=== PATIENT | female | born 1940 | race Caucasian/White ===

== ENCOUNTER 2016-11-19 10:57 | Inpatient (IN) ==
[2016-11-19] MEDS ORDERED: Naloxone 0.4 MG/ML INJ IVP PRN (13:51)
[2016-11-19] MEDS ORDERED: Ondansetron 4 MG/2 ML VIAL IVP PRN (13:52)
[2016-11-19] MEDS ORDERED: *HR* Dextrose 50 % in Water (Syg) 50 ML SYRINGE IVP PRN (13:57)
[2016-11-19] MEDS ORDERED: D5% in Water 1,000 ML IVC PRN (13:57)
[2016-11-19] MEDS ORDERED: Dextrose Gel 15 GM PO PRN ×2 (13:57)
[2016-11-19] MEDS ORDERED: Albuterol 2.5 MG/3 ML NEBULIZER IH PRN (13:58)
[2016-11-19] MEDS ORDERED: 0.9 % Sodium Chloride 1,000 ML IVC SCH ×2 (14:00→14:56)
--- NOTE | 2016-11-19 14:38 | Internal Med History&Physical ---
<Clari Dotson - Last Filed: 11/19/16 17:39> Date of Encounter: 11/19/16 Time of Encounter: 14:27 Assessment and Plan (1) CVA (cerebral vascular accident) Current visit: Yes Status: Acute Patient has been experiencing difficulty ambulating and eating and change in behavior over the past 2 days. Last known well was on either Tuesday or Tuesday. CT of head did reveal acute subacute left occipital infarct. We will obtain stat MRI of head 2 I did give aspirin rectally 3 we will check lipid profile continue with statin 4 consulted neurology did speak to Dr. Hitchcock will see patient 5 neuro checks 6 aspiration precaution 7 bedside nursing dysphagia evaluation 8 continuous cardiac monitoring Qualifiers: CVA mechanism: unspecified Qualified Code(s): I63.9 - Cerebral infarction, unspecified (2) UTI (urinary tract infection) Current visit: No Status: Acute 1 patient was treated with Bactrim at long-term for UTI sensitivity did reveal Proteus is sensitive for Rocephin which we will continue 2 we will give IV fluids Qualifiers: Urinary tract infection type: site unspecified Hematuria presence: with hematuria Qualified Code(s): N39.0 - Urinary tract infection, site not specified; R31.9 - Hematuria, unspecified; R31.9 - Hematuria, unspecified (3) Sepsis Current visit: Yes Status: Acute Patient presented with altered mental state. Had been treated for UTI as outpatient. She was tachycardic with elevated white count 19.9 temperature was 100.9 sources urine. Blood cultures have been obtained patient has given 2 L of fluid per ER. Culture did grow Proteus-which is sensitive to Rocephin we will continue with Rocephin and blood cultures have been obtained and sent 2 we will give gentle hydration overnight 3 monitor intake and output and daily weights 4 maintain MAP >60 5 continuous cardiac monitoring Qualifiers: Sepsis type: Escherichia coli Qualified Code(s): A41.51 - Sepsis due to Escherichia coli [E. coli] (4) Diabetes Current visit: No Status: Chronic Accu-Cheks to 6 hours nothing by mouth with sliding scale insulin Qualifiers: Diabetes mellitus type: type 2 Diabetes mellitus complication status: without complication Diabetes mellitus mcc insulin use: with intermediate card tender use Qualified Code(s): E11.9 - Type 2 diabetes mellitus without complications ; Z79.4 - USP (current) use of insulin; Z79.4 - ad terminal makeup operator (current) use of insulin; Z79.4 - USP (current) use of insulin; Z79.4 - USP ( current) use of insulin (5) Hypertension Current visit: No Status: Chronic Presently stable-systolic 150s- we allow permissive hypertension due to CVA- continue with home medications Qualifiers: Hypertension type: essential hypertension Qualified Code(s): I10 - Essential (primary) hypertension (6) COPD (chronic obstructive pulmonary disease) Current visit: No Status: Chronic Continue with oxygen and bronchodilators Qualifiers: COPD type: unspecified COPD Qualified Code(s): J44.9 - Chronic obstructive pulmonary disease, unspecified (7) CHF (congestive heart failure) Current visit: No Status: Chronic Qualifiers: Congestive heart failure type: unspecified congestive heart failure type Congestive heart failure chronicity: chronic Qualified Code(s): I50.9 - Heart failure, unspecified (8) Dementia Current visit: Yes Status: Acute Qualifiers: Dementia type: unspecified type Dementia behavioral disturbance: without behavioral disturbance Qualified Code(s): F03.90 - Unspecified dementia without behavioral disturbance (9) Altered mental status Current visit: No Status: Acute 1 patient has had a change in behavior over the past 2 days her difficulty with walking feeding herself and carry conversation. Patient does have a baseline history of dementia, her family feels she has worsened. Her last known well was either Tuesday This could be multifactorial since patient does have a urinary tract infection as well as appears a acute to subacute left occipital infarct. We have followed sepsis protocol given IV fluids and blood cultures and treated with antibiotics 2 MRI has been obtained consult neurology spoke with Dr. Hitchcock 3 continue with an OKIS assessment 4 avoid sedating medications 5 monitor electrolytes Qualifiers: Altered mental status type: unspecified Qualified Code(s): R41.82 - Altered mental status, unspecified (10) DVT prophylaxis Current visit: Yes Status: Acute 1 Lovenox subcutaneous Internal Medicine - H&P: HPI Chief complaint: AMS Admitted From: Hospital to Hospital Transfer Plans for Post Hospital Care: Transfer Longterm Facility History of present illness: Ms. Dejesus is a 76 year old female past medical history of atrial fibrillation asthma CHF cardiomyopathy COPD dementia diabetes GERD hyperlipidemia hypertension liver disease. Information has been obtained from medical records as well as nursing staff due to patient's altered mental state . According to the ER records the patient was recently diagnosed for urinary tract infection and had been receiving Bactrim. Over the past 24 hours she has been displaying worsening mental state, he has not been able to ambulate or feed herself. She does have a history of dementia however family reported that she was unable to carry a conversation which was concerning to them her last known well was on Tuesday or Tuesday. She did present to the [facility] for evaluation. According to ER records upon presentation it appears she was septic with tachycardia and temperature of 100.9 her white count 19. Urine was indicative of UTI. CT of head was obtained which was concerning for acute to subacute left occipital infarct. Sepsis protocol was followed patient was transferred to this facility for further workup and evaluation. Upon arrival stat MRI of head was ordered, it was no family at the bedside according to [facility] records patient is a full code. Patient does appear to be hemodynamic stable at this time. She is alert and does not follow commands well and basically repeats words over and over again. Past Med Surg Social Fam HX - Past Medical History Medical history: arthritis, asthma, atrial fibrillation, cardiomyopathy, CHF, COPD, dementia, diabetes, GERD, hyperlipidemia, hypertension, liver disease, osteoporosis Psychiatric history: anxiety - Social History Smoking Status: Former smoker Smokeless Tobacco Status: No Alcohol use: none Drug use: none - Additional Family History Additional family history: Unable to review due to patient's mental state Internal Medicine - H&P: Meds Acetaminophen [Tylenol] 650 mg PO Q6HR PRN 11/19/16 [History] Albuterol Sulfate [Albuterol Inhaler] 1 puff IH Q4HR PRN 11/19/16 [History] Ascorbate Calcium [Vitamin C] 500 mg PO DAILY 11/19/16 [History] Citalopram [CeleXA] 10 mg PO DAILY 11/19/16 [History] Divalproex (12 HR) [Depakote (12 HR)] 1,000 mg PO DAILY 11/19/16 [History] Docusate [Colace] 100 mg PO BID 11/19/16 [History] Gabapentin [Neurontin] 300 mg PO BID 11/19/16 [History] Glimepiride [Amaryl] 2 mg PO 0800 11/19/16 [History] Haloperidol [Haldol] 5 mg PO TID 11/19/16 [History] Insulin ASPART [NovoLOG] 0 - 12 unit SQ TID PRN 11/19/16 [History] Insulin Glargine [Lantus] 30 unit SQ HS 11/19/16 [History] Iron,Carbonyl [Feosol] 325 mg PO QAM 11/19/16 [History] Lisinopril [Zestril] 10 mg PO DAILY 11/19/16 [History] [place] Carbonate 300 mg PO DAILY 11/19/16 [History] Metoclopramide [Reglan] 10 mg PO TID 11/19/16 [History] Multivitamin-Min/Iron/FA/Vit K [Multi-Day Plus Minerals Tablet] 1 each PO DAILY 11/19/16 [History] Naproxen [Naprosyn] 500 mg PO Q12H PRN 11/19/16 [History] Nortriptyline [Pamelor] 25 mg PO HS 11/19/16 [History] Omeprazole [PriLOSEC] 20 mg PO DAILY 11/19/16 [History] Ondansetron HCl [Zofran] 4 mg PO Q8H PRN 11/19/16 [History] Polyethylene Glycol [Polyox Wsr-301] 17 gm MC BID 11/19/16 [History] Pravastatin Sodium 10 mg PO DAILY 11/19/16 [History] Sodium Chloride 1,000 mg PO BID 11/19/16 [History] Zolpidem [Ambien] 5 mg PO HS 11/19/16 [History] metFORMIN [Glucophage] 1,000 mg PO BIDWM 11/19/16 [History] traZODone [TraZODone] 100 mg PO HS 11/19/16 [History] 3 Allergy/AdvReac Type Severity Reaction Status Date / Time codeine Allergy Vomiting Verified 12/27/15 10:50 iodine Allergy See Verified 11/19/16 09:05 Comments propoxyphene [From Darvon] Allergy Vomiting Verified 11/19/16 09:05 ROS unobtainable: due to mental status All Systems PM: A 10-system review of systems was performed and is negative for pertinent findings except as documented above in the HPI. - Constitutional Vitals: Temp Pulse Resp BP Pulse Ox 99.6 F 92 18 152/84 98 11/19/16 12:15 11/19/16 12:15 11/19/16 12:15 11/19/16 12:15 11/19/16 12:15 General appearance: Present: A&O X 1 Exam: Does not follow commands well - Head Head exam: Present: atraumatic, normocephalic - Eye Eye exam: Present: EOMI, PERRL, conjuntiva pink, sclera anicteric Pupils: Present: PERRL - Neck Neck exam general surgery: Present: supple, trachea midline. Absent: lymphadenopathy - Respiratory Respiratory exam: Present: CTAB. Absent: accessory muscle use, rales, rhonchi, wheezes - Cardiovascular Cardiovascular exam: Present: RRR, +S1, +S2. Absent: diastolic murmur, gallop, rubs, systolic murmur - GI/Abdominal GI/Abdominal exam: Present: normal bowel sounds, soft, no peritoneal signs. Absent: distended, tenderness - Extremities Exam Extremities exam: Present: warm, radial pulses palpable and symmetrical. Absent : calf tenderness, cyanotic, pedal edema - Neurological Exam Neurological exam: Present: altered. Absent: pronater drift, facial droop, speech deficit - Skin Skin exam: Present: dry, intact Internal Med - H&P Results - Labs Labs: Lab work dated 11/19/2016 CBC day BC 19.9 hemoglobin 13.3 hematocrit 40.4 platelets 277 Chemistry sodium 142 potassium 4.3 chloride 109 bicarbonate 25 BUN 26 creatinine 1.01 glucose 390 Coags PT 11.5 INR 1.1 PTT 24.4 Lactate 1.3 Troponin 0.04 TSH 2.43 Urinalysis positive for blood and positive for nitrate large amount of leuks moderate bacteria - Diagnostic Studies CT scan - head Additional comments: CT scan of head per radiology read subtle hypoattenuation and loss of normal lincoln white junction within the left occipital lobe concerning for an acute/ subacute left occipital infarct <Jaydon Zelaya - Last Filed: 11/19/16 20:47> Date of Encounter: 11/19/16 Internal Medicine - H&P: HPI History of present illness: Ms. Dejesus is a 76 year old female All Systems PM: A 10-system review of systems was performed and is negative for pertinent findings except as documented above in the HPI. - Constitutional Vitals: Temp Pulse Resp BP Pulse Ox 100.8 F H 98 20 137/79 94 11/19/16 18:55 11/19/16 18:55 11/19/16 18:55 11/19/16 18:55 11/19/16 18:55 Internal Med - H&P Results - Labs Labs: Cardiac Enzymes 11/19/16 11/19/16 Range/Units 14:22 19:44 Troponin I 0.02 0.02 (0-0.03) ng/mL - Impressions ITS Impressions Brain MRI 11/19/16 13:37 IMPRESSION: 1. No acute intracranial abnormality. Specifically, no acute infarction. 2. Mild parenchymal volume loss and sequela of mild chronic microvascular ischemic changes. D/ / Ricardo Caballero MD / Ricardo Caballero MD Interpreting Provider: Ricardo Caballero MD - Attending Attestation I independently obtained history and examined this patient and my medical decision-making was reviewed with the nurse practitioner. I agree with the documented findings, disposition and treatment plan as described. My findings are summarized below: Ration is lethargic, in no acute distress, answers simples questions. She is awake alert oriented 0. Plan: We will obtain MRI of the brain. We will treat with IV fluids and IV antibiotics for UTI and metabolic encephalopathy.
--- NOTE | 2016-11-19 16:22 | Neurology - Consult Note ---
Date of Encounter: 11/19/16 Time of Encounter: 16:19 Assessment and Plan (1) Altered mental status Current Visit: No Status: Acute I believe that this patient's altered mental status is more likely due to an underlying infectious process. I would however recommend metabolic workup to reaffirm an infectious process. However there is no evidence of a central nervous system infectious process. She denies headache, there is axial rigidity , however I believe this may be due to a underlying movement disorder perhaps Parkinson's disease. Recommend CBC with differential, metabolic panel. MRI scan of the brain was negative for any evidence of an acute infarct. From a neurologic perspective however it is possible that she may have Parkinson's disease. However this is a diagnosis that is best made in the office setting when the patient is able to walk and move around. However she does have a resting tremor of the left upper extremity and does have masked facies. I would recommend neurologic consultation after she is discharged from the hospital for further assessment of this possibility. In the meantime I will defer management of her acute metabolic derangement and sepsis to your discretion. I will reevaluate her at your request. Qualifiers: Altered mental status type: unspecified Qualified Code(s): R41.82 - Altered mental status, unspecified History of Present Illness HPI: Ms. Dejesus is a 76 year old female who is being seen for neurologic consultation secondary to mental status change. She does have a baseline history of dementia , and the history is being obtained from the medical record and the patient is somewhat confused and no family members are present. Apparently there has been a change from her baseline behavior over the last 2 days. She had a poor appetite and has been less responsive and sleeping more. She was known to have had a urinary tract infection for which she was being treated. She did have a CT scan of the brain which revealed suspicion for an acute infarct, however MRI scan of the brain repeated here since this admission was negative for any evidence of acute infarct. It does reveal some scattered deep white matter hyperintensities as well as cortical atrophy. At the bedside the patient is awake however somewhat confused. I did ask her whether she had a headache on multiple occasions and she said no. She does moan however cannot tell me where she has pain. She was able to follow some commands however not all. She is not able to provide a medical history. Past Med Surg Social Fam HX - Past Medical History Medical history: arthritis, asthma, atrial fibrillation, cardiomyopathy, CHF, COPD, dementia, diabetes, GERD, hyperlipidemia, hypertension, liver disease, osteoporosis Psychiatric history: anxiety - Social History Smoking Status: Former smoker Smokeless Tobacco Status: No Alcohol use: none Drug use: none Medications and Allergies Acetaminophen [Tylenol] 650 mg PO Q6HR PRN 11/19/16 [History] Albuterol Sulfate [Albuterol Inhaler] 1 puff IH Q4HR PRN 11/19/16 [History] Ascorbate Calcium [Vitamin C] 500 mg PO DAILY 11/19/16 [History] Citalopram [CeleXA] 10 mg PO DAILY 11/19/16 [History] Divalproex (12 HR) [Depakote (12 HR)] 1,000 mg PO DAILY 11/19/16 [History] Docusate [Colace] 100 mg PO BID 11/19/16 [History] Gabapentin [Neurontin] 300 mg PO BID 11/19/16 [History] Glimepiride [Amaryl] 2 mg PO 0800 11/19/16 [History] Haloperidol [Haldol] 5 mg PO TID 11/19/16 [History] Insulin ASPART [NovoLOG] 0 - 12 unit SQ TID PRN 11/19/16 [History] Insulin Glargine [Lantus] 30 unit SQ HS 11/19/16 [History] Iron,Carbonyl [Feosol] 325 mg PO QAM 11/19/16 [History] Lisinopril [Zestril] 10 mg PO DAILY 11/19/16 [History] [place] Carbonate 300 mg PO DAILY 11/19/16 [History] Metoclopramide [Reglan] 10 mg PO TID 11/19/16 [History] Multivitamin-Min/Iron/FA/Vit K [Multi-Day Plus Minerals Tablet] 1 each PO DAILY 11/19/16 [History] Naproxen [Naprosyn] 500 mg PO Q12H PRN 11/19/16 [History] Nortriptyline [Pamelor] 25 mg PO HS 11/19/16 [History] Omeprazole [PriLOSEC] 20 mg PO DAILY 11/19/16 [History] Ondansetron HCl [Zofran] 4 mg PO Q8H PRN 11/19/16 [History] Polyethylene Glycol [Polyox Wsr-301] 17 gm MC BID 11/19/16 [History] Pravastatin Sodium 10 mg PO DAILY 11/19/16 [History] Sodium Chloride 1,000 mg PO BID 11/19/16 [History] Zolpidem [Ambien] 5 mg PO HS 11/19/16 [History] metFORMIN [Glucophage] 1,000 mg PO BIDWM 11/19/16 [History] traZODone [TraZODone] 100 mg PO HS 11/19/16 [History] 3 Allergy/AdvReac Type Severity Reaction Status Date / Time codeine Allergy Vomiting Verified 12/27/15 10:50 iodine Allergy See Verified 11/19/16 09:05 Comments propoxyphene [From Darvon] Allergy Vomiting Verified 11/19/16 09:05 ROS unobtainable: due to mental status All Systems: A 10-system review of systems was performed and is negative for pertinent findings except as documented above in the HPI. Physical Examination - Vital Signs Vital Signs: Initial Vital Signs Temp Pulse Resp BP Pulse Ox 99.6 F 92 18 152/84 98 11/19/16 12:15 11/19/16 12:15 11/19/16 12:15 11/19/16 12:15 11/19/16 12:15 - Exam Exam: Neurologic examination is performed and finds the following; Cerebral functions-the patient is lethargic, however does make eye contact, she is able to give simple verbal responses to simple 1 word questions. I did ask whether or not she has a headache she replied no one several occasions. I did ask her what her name was and she was able to tell me that her name is Sangita Dejesus, she also knows that she is in [facility]. She follows some commands however not all. She was not able to give a medical history. Cranial nerves-pupils are equal and reactive to light, extraocular motility is intact. Sensory to face is intact. No facial asymmetry is identified. Tongue protrudes midline. Motor exam-I find no focal or lateralized deficits. However she does appear to be parkinsonian. She does appear to have masked facies as well as a resting tremor of the left upper extremity. She also has cogwheeling of the left upper extremity. She has rigidity of both lower extremities. No atrophy is identified. No focal or lateralized deficits are present. She has good strength bilaterally she is able to wiggle the toes bilaterally upon command. Sensory exam-light touch is generally intact bilaterally. Deep tendon reflexes are 1 symmetrically in the biceps triceps brachioradialis absent at the patella and Achilles. No Babinski or clonus are present. Consult Discharge Plan - Plan Referrals: Ludwin Mcdonnell MD [Primary Care Provider] -
[2016-11-19] MEDS ORDERED: Acetaminophen 325 MG TABLET PO PRN (17:48)
[2016-11-19] MEDS: Insulin LISPRO 300 UNITS/3 ML VIAL SQ SCH ×2 (18:25→23:31)
[2016-11-19] MEDS: Acetaminophen 650 MG RECTAL SUPP RC PRN (21:15)
[2016-11-19] MEDS: Gabapentin 100 MG CAPSULE PO SCH (21:18)
[2016-11-19] MEDS: *HR* Morphine 2 MG/ML SYRINGE IVP PRN (23:28)
[2016-11-20 02:53] LABS: Basophils # 0.1 K/mcL (0.0-0.2); Basophils % 0.4 %; Eosinophils % 0.2 %; Hematocrit 37.7 % (35.3-44.9); Hemoglobin 12.3 g/dL (11.5-15.4); Immature Granulocytes % 0.5 % (0-4); Lymphocytes # 3.6 K/mcL (0.6-4.6); Lymphocytes % 20.4 %; Mean Corpuscular HGB Conc 32.6 g/dL (31.6-35.5); Mean Corpuscular Hemoglobin 30.4 pg (28.0-33.3); Mean Corpuscular Volume 93.1 fL (83.0-100.0); Monocytes # 1.5 K/mcL (0.0-1.3); Monocytes % 8.7 %; Neutrophils # 12.4 K/mcL (1.6-8.9); Platelet Count 253 K/mcL (140-400); Red Blood Count 4.05 M/mcL (3.82-4.97); Red Cell Distribution Width 13.1 % (11.5-14.5); Segmented Neutrophils % 69.8 %
[2016-11-20 03:08] LABS: BUN/Creatinine Ratio 30 (6-26); Blood Urea Nitrogen 23 mg/dL (7-20); Calcium 8.8 mg/dL (8.6-10.8); Carbon Dioxide 26 mEq/L (19-29); Chloride 114 mEq/L (98-109); Glucose 191 mg/dL (70-99); Magnesium 1.9 mg/dL (1.6-2.6); Osmolality,Calculated 309 (280-300); Potassium 3.7 mEq/L (3.5-4.5); Sodium 145 mEq/L (136-145); eGFR For African Americans > 60 (> 60); eGFR For Non-African Americans > 60 (> 60)
[2016-11-20] MEDS: *HR* Morphine 2 MG/ML SYRINGE IVP PRN ×3 (03:30→16:11)
[2016-11-20] MEDS: Insulin LISPRO 300 UNITS/3 ML VIAL SQ SCH ×3 (06:09→18:23)
[2016-11-20] MEDS: Pantoprazole 40 MG VIAL IVP SCH (08:06)
[2016-11-20] MEDS: Acetaminophen 650 MG RECTAL SUPP RC PRN ×3 (09:26→23:42)
[2016-11-20] MEDS: Lithium Carbonate 300 MG CAPSULE PO SCH (10:28)
[2016-11-20] MEDS: Divalproex (12 HR) 500 MG TABLET PO SCH (10:28)
[2016-11-20] MEDS: Gabapentin 100 MG CAPSULE PO SCH ×2 (10:28→19:54)
[2016-11-20] MEDS: Ascorbic Acid 500 MG TABLET PO SCH (10:29)
[2016-11-20] MEDS: Multivit/Ca/Min/Fe/FA 1 TAB TABLET PO SCH (10:29)
--- NOTE | 2016-11-20 12:19 | Neurology Progress Note ---
Date of Encounter: 11/20/16 Time of Encounter: :17 Assessment and Plan (1) Parkinsonism Current Visit: Yes Status: Acute Pt does appear very parkinsonian. She also has an elevated WBC count and is very rigid. Apparently takes haldol as well as reglan. Concern for NMS. will check cpk levels and LFT's. If elevated will anticipate starting dantrolene. If labs are normal will consider LP if not clinically improved tomorrow. Continue ongoing mgmt of UTI. Consider ID eval. Qualifiers: Qualified Code(s): G21.11 - Neuroleptic induced parkinsonism Subjective Interval history: Chart was reviewed, pt was seen and examined. Case discussed with nursing. Pt. is not improved from yesterday. She remains lethargic. WBC's 17.8, BUN elevated. She is able to answer some questions and others not. Neurologically does have masked facies. Cogwheel rigidity of the upper extremities. Also nuchal rigidity and rigidity of the legs. Temp 100.9. Currently on abx tx for UTI. Still denies headache. Objective - Constitutional Vitals: Temp Pulse Resp BP Pulse Ox 100.9 F H 90 22 136/70 97 11/20/16 11:40 11/20/16 11:40 11/20/16 11:40 11/20/16 11:40 11/20/16 11:40 - Neurological Exam Additional comments: Neurologic exam finds; Cerebral functions- Lethargic, arouses to voice, does make eye contact, paucity of speech, however answers some questions appropriately. Recognizes 2 fingers held in front of her. Delerious. CN- MEGGAN,EOMI, no facial asymmetry, voice hypophonic. Motor- no focal or lateralized deficits, pt does have cogwheel rigidity of the upper and lower extremities. Also has axial rigidity. DTR's- diminished throughout. Results - Laboratory Findings CBC and BMP: 11/20/16 02:28 11/20/16 02:28 Abnormal lab findings: Abnormal lab results WBC 17.8 K/mcL (4.3-11.1) H 11/20/16 02:28 Neutrophils # 12.4 K/mcL (1.6-8.9) H 11/20/16 02:28 Monocytes # 1.5 K/mcL (0.0-1.3) H 11/20/16 02:28 Chloride 114 mEq/L (98-109) H 11/20/16 02:28 BUN 23 mg/dL (7-20) H 11/20/16 02:28 BUN/Creatinine Ratio 30 (6-26) H 11/20/16 02:28 Glucose 191 mg/dL (70-99) H 11/20/16 02:28 POC Glucose 210 (58-89) H 11/19/16 23:11 Calculated Osmolality 309 (280-300) H 11/20/16 02:28 Consult Discharge Plan - Plan Referrals: Ludwin Mcdonnell MD [Primary Care Provider] -
[2016-11-20 13:13] LABS: Alanine Aminotransferase 43 Units/L (0-55); Aspartate Amino Transferase 36 Units/L (5-34); Creatine Kinase 388 Units/L (29-168)
--- NOTE | 2016-11-20 18:36 | Internal Med Progress Note ---
Date of Encounter: 11/20/16 Time of Encounter: 11:00 - Assessment and plan (1) Sepsis Current Visit: Yes Status: Acute Assessment and plan: -Secondary to acute cystitis. -Continue IV ceftriaxone -Concerns for nuchal rigidity. -Neurology following with recommendations to rule out NMS and if negative will consider LP if not clinically improved tomorrow. Qualifiers: Sepsis type: sepsis due to unspecified organism Qualified Code(s): A41.9 - Sepsis, unspecified organism (2) Diabetes Current Visit: No Status: Chronic Assessment and plan: -Continue home meds Qualifiers: Diabetes mellitus type: type 2 Diabetes mellitus complication status: without complication Diabetes mellitus half-way insulin use: with half-way use Qualified Code(s): E11.9 - Type 2 diabetes mellitus without complications ; Z79.4 - long term care pharmacist (current) use of insulin; Z79.4 - skilled nursing (current) use of insulin; Z79.4 - long term care pharmacist (current) use of insulin; Z79.4 - long term care pharmacist ( current) use of insulin (3) Hypertension Current Visit: No Status: Chronic Assessment and plan: Continue home meds Qualifiers: Hypertension type: essential hypertension Qualified Code(s): I10 - Essential (primary) hypertension (4) COPD (chronic obstructive pulmonary disease) Current Visit: No Status: Chronic Assessment and plan: Continue home meds Qualifiers: COPD type: unspecified COPD Qualified Code(s): J44.9 - Chronic obstructive pulmonary disease, unspecified (5) CHF (congestive heart failure) Current Visit: No Status: Chronic Assessment and plan: Continue home meds Qualifiers: Congestive heart failure type: unspecified congestive heart failure type Congestive heart failure chronicity: chronic Qualified Code(s): I50.9 - Heart failure, unspecified (6) DVT prophylaxis Current Visit: Yes Status: Acute (7) Parkinsonism Current Visit: Yes Status: Acute Assessment and plan: -Neurology following and appreciate recommendations 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 Absent: diastolic murmur, gallop, rubs, systolic murmur Internal Medicine: Result - Labs CBC & Chem 7: 11/20/16 02:28 11/20/16 02:28 Labs: Short CBC 11/20/16 Range/Units 02:28 WBC 17.8 H (4.3-11.1) K/mcL Hgb 12.3 (11.5-15.4) g/dL Hct 37.7 (35.3-44.9) % Plt Count 253 (140-400) K/mcL Neutrophils # 12.4 H (1.6-8.9) K/mcL BMP 11/20/16 02:28 Sodium 145 Potassium 3.7 Chloride 114 H Carbon Dioxide 26 BUN 23 H Creatinine 0.77 Glucose 191 H Calcium 8.8 Cardiac Enzymes 11/19/16 11/20/16 Range/Units 19:44 02:28 Troponin I 0.02 0.03 (0-0.03) ng/mL Liver Function 11/20/16 Range/Units 12:51 AST 36 H (5-34) Units/L ALT 43 (0-55) Units/L Consult Discharge Plan - Plan Referrals: Ludwin Mcdonnell MD [Primary Care Provider] -
[2016-11-20] MEDS ORDERED: Acetaminophen 650 MG RECTAL SUPP RC ONE (19:59)
[2016-11-21] MEDS ORDERED: WATER FOR INJ IVP ONE (01:49)
[2016-11-21] MEDS ORDERED: DANTROLENE SODIUM IVP ONE (01:49)
[2016-11-21] MEDS: Insulin LISPRO 300 UNITS/3 ML VIAL SQ SCH ×4 (02:23→18:00)
[2016-11-21] MEDS: *HR* Morphine 2 MG/ML SYRINGE IVP PRN ×2 (08:28→14:37)
[2016-11-21] MEDS: Divalproex (12 HR) 500 MG TABLET PO SCH (08:29)
[2016-11-21] MEDS: Pantoprazole 40 MG VIAL IVP SCH (08:31)
[2016-11-21] MEDS: Multivit/Ca/Min/Fe/FA 1 TAB TABLET PO SCH (08:36)
[2016-11-21] MEDS: Ascorbic Acid 500 MG TABLET PO SCH (08:36)
[2016-11-21] MEDS: Lithium Carbonate 300 MG CAPSULE PO SCH (08:36)
[2016-11-21] MEDS: Gabapentin 100 MG CAPSULE PO SCH ×2 (08:36→19:22)
[2016-11-21 10:36] LABS: Basophils # 0.1 K/mcL (0.0-0.2); Basophils % 0.4 %; Eosinophils % 0.1 %; Hemoglobin 12.4 g/dL (11.5-15.4); Immature Granulocytes % 0.4 % (0-4); Lymphocytes # 3.3 K/mcL (0.6-4.6); Lymphocytes % 23.7 %; Mean Corpuscular HGB Conc 32.6 g/dL (31.6-35.5); Mean Corpuscular Hemoglobin 30.3 pg (28.0-33.3); Mean Corpuscular Volume 92.9 fL (83.0-100.0); Mean Platelet Volume 10.5 fL (9.4-12.4); Monocytes # 1.3 K/mcL (0.0-1.3); Monocytes % 9.4 %; Platelet Count 264 K/mcL (140-400); Red Blood Count 4.09 M/mcL (3.82-4.97); Red Cell Distribution Width 13.1 % (11.5-14.5)
[2016-11-21 10:53] LABS: Alanine Aminotransferase 67 Units/L (0-55); Albumin 2.7 g/dL (3.5-5.0); Albumin/Globulin Ratio 0.9 (1.1-2.2); Alkaline Phosphatase 73 Units/L (38-126); Aspartate Amino Transferase 52 Units/L (5-34); BUN/Creatinine Ratio 33 (6-26); Bilirubin,Total 0.4 mg/dL (0.2-1.2); Blood Urea Nitrogen 26 mg/dL (7-20); Calcium 8.8 mg/dL (8.6-10.8); Carbon Dioxide 27 mEq/L (19-29); Chloride 114 mEq/L (98-109); Creatine Kinase 501 Units/L (29-168); Globulin 2.9 g/dL (2.4-3.5); Glucose 189 mg/dL (70-99); Osmolality,Calculated 316 (280-300); Potassium 3.4 mEq/L (3.5-4.5); Sodium 148 mEq/L (136-145); Total Protein 5.6 g/dL (6.0-8.3); eGFR For African Americans > 60 (> 60); eGFR For Non-African Americans > 60 (> 60)
[2016-11-21] MEDS: 0.9 % Sodium Chloride 1,000 ML IVC SCH (11:00)
--- NOTE | 2016-11-21 13:23 | Neurology Progress Note ---
Date of Encounter: 11/21/16 Time of Encounter: 13:18 Assessment and Plan (1) Parkinsonism Current Visit: Yes Status: Acute I am concerned about the possibility of neuroleptic malignant syndrome. She has been on Haldol, and is currently on metoclopramide. Both of which are dopaminergic blockers. I would recommend that we discontinue the metoclopramide , discontinue any other medication that resultant dopaminergic blockade. Also recommend we stop lithium and check a level level. I will start her on dantrolene per protocol. I will also attempt to get a lumbar puncture done through interventional radiology to rule out the possibility of a central nervous system infectious process. Also recommend psychiatric evaluation to rule out the possibility of malignant catatonia. 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, unspecified Subjective Interval history: The patient was seen and examined, chart was reviewed. Case discussed with nursing. Patient is clinically unimproved. She remains awake however is nonverbal, not responsive at all. Not following commands, not attempting to talk. WBCs are slightly decreased today, however LFTs, and CPK are slightly increased. I am concerned about the possibility of an NMS-type syndrome. Patient was given 1 dose of dantrolene last night and apparently responded as her heart rate decreased, and respirations improved. Must also rule out a central nervous system infectious process. Objective - Constitutional Vitals: Temp Pulse Resp BP Pulse Ox 100.2 F H 105 40 166/86 96 11/21/16 11:47 11/21/16 11:47 11/21/16 11:47 11/21/16 11:47 11/21/16 11:47 - Neurological Exam Additional comments: Neurologic examination finds that the patient is awake however she is not alert she does not respond to voice commands she does make eye contact. Does not attempts to talk. She is diaphoretic, respirations are somewhat rapid. Pupils are equal and reactive. No facial asymmetry is present. Motor exam-he was axial rigidity as well as appendicular rigidity. I am increasingly suspicious of a neuroleptic malignant syndrome type process. She has been on haloperidol, as well as metoclopramide. Deep tendon reflexes are 1 symmetrically. No clonus or Babinski are present. Results - Laboratory Findings CBC and BMP: 11/21/16 09:44 11/21/16 09:44 Abnormal lab findings: Abnormal lab results WBC 13.7 K/mcL (4.3-11.1) H 11/21/16 09:44 Neutrophils # 9.0 K/mcL (1.6-8.9) H 11/21/16 09:44 Sodium 148 mEq/L (136-145) H 11/21/16 09:44 Potassium 3.4 mEq/L (3.5-4.5) L 11/21/16 09:44 Chloride 114 mEq/L (98-109) H 11/21/16 09:44 BUN 26 mg/dL (7-20) H 11/21/16 09:44 BUN/Creatinine Ratio 33 (6-26) H 11/21/16 09:44 Glucose 189 mg/dL (70-99) H 11/21/16 09:44 POC Glucose 207 (58-89) H 11/21/16 06:25 Calculated Osmolality 316 (280-300) H 11/21/16 09:44 AST 52 Units/L (5-34) H 11/21/16 09:44 ALT 67 Units/L (0-55) H 11/21/16 09:44 Creatine Kinase 501 Units/L (29-168) H 11/21/16 09:44 Serum Total Protein 5.6 g/dL (6.0-8.3) L 11/21/16 09:44 Albumin 2.7 g/dL (3.5-5.0) L 11/21/16 09:44 Albumin/Globulin Ratio 0.9 (1.1-2.2) L 11/21/16 09:44 Consult Discharge Plan - Plan Referrals: Ludwin Mcdonnell MD [Primary Care Provider] -
--- NOTE | 2016-11-21 17:25 | Internal Med Progress Note ---
Date of Encounter: 11/21/16 Time of Encounter: 11:00 - Assessment and plan (1) Sepsis Current Visit: Yes Status: Acute Assessment and plan: -Secondary to acute cystitis. -Continue IV ceftriaxone -Concerns for nuchal rigidity. -Neurology following with recommendations to rule out NMS and for LP to rule out infectious source. Qualifiers: Sepsis type: sepsis due to unspecified organism Qualified Code(s): A41.9 - Sepsis, unspecified organism (2) Parkinsonism Current Visit: Yes Status: Acute Assessment and plan: -Neurology consulted with recommendations for treating suspected NMS with Dantrolene. -Recommendations to discontinue Haldol and metoclopramide in addition to psychiatry consult to rule out malignant catatonia. -Recommendations also for CT of brain and lumbar puncture to exclude structural brain disease and infection; interventional radiology to be consult for LP. 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, unspecified (3) Diabetes Current Visit: No Status: Chronic Assessment and plan: -Controlled;continue home meds Qualifiers: Diabetes mellitus type: type 2 Diabetes mellitus complication status: without complication Diabetes mellitus roasterman insulin use: with roasterman use Qualified Code(s): E11.9 - Type 2 diabetes mellitus without complications ; Z79.4 - exterminator helper termite (current) use of insulin; Z79.4 - half-way (current) use of insulin; Z79.4 - exterminator helper termite (current) use of insulin; Z79.4 - half-way ( current) use of insulin (4) Hypertension Current Visit: No Status: Chronic Assessment and plan: Continue home meds Qualifiers: Hypertension type: essential hypertension Qualified Code(s): I10 - Essential (primary) hypertension (5) COPD (chronic obstructive pulmonary disease) Current Visit: No Status: Chronic Assessment and plan: Continue home meds Qualifiers: COPD type: unspecified COPD Qualified Code(s): J44.9 - Chronic obstructive pulmonary disease, unspecified (6) CHF (congestive heart failure) Current Visit: No Status: Chronic Assessment and plan: Continue home meds Qualifiers: Congestive heart failure type: unspecified congestive heart failure type Congestive heart failure chronicity: chronic Qualified Code(s): I50.9 - Heart failure, unspecified (7) DVT prophylaxis Current Visit: Yes Status: Acute Assessment and plan: Heparin subcutaneous - Subjective Interval history: Patient with generalized rigidity and with hyperthermia overnight. She continues to have altered mental status. Family who is present at bedside reports the symptoms have been present for several weeks and she has progressively gotten worse. - Constitutional Vitals: Temp Pulse Resp BP Pulse Ox 99.9 F H 101 28 106/67 96 11/21/16 15:45 11/21/16 15:45 11/21/16 15:45 11/21/16 15:45 11/21/16 15:45 General appearance: Present: A&O X 1 - Cardiovascular Cardiovascular exam: Present: RRR, +S1, +S2. Absent: diastolic murmur, gallop, rubs, systolic murmur - Neurological Exam Additional comments: Patient with generalized rigidity Internal Medicine: Result - Labs CBC & Chem 7: 11/21/16 09:44 11/21/16 09:44 Labs: Short CBC 11/21/16 Range/Units 09:44 WBC 13.7 H (4.3-11.1) K/mcL Hgb 12.4 (11.5-15.4) g/dL Hct 38.0 (35.3-44.9) % Plt Count 264 (140-400) K/mcL Neutrophils # 9.0 H (1.6-8.9) K/mcL BMP 11/21/16 09:44 Sodium 148 H Potassium 3.4 L Chloride 114 H Carbon Dioxide 27 BUN 26 H Creatinine 0.78 Glucose 189 H Calcium 8.8 Liver Function 11/21/16 Range/Units 09:44 Total Bilirubin 0.4 (0.2-1.2) mg/dL AST 52 H (5-34) Units/L ALT 67 H (0-55) Units/L Alkaline Phosphatase 73 (38-126) Units/L Albumin 2.7 L (3.5-5.0) g/dL Consult Discharge Plan - Plan Referrals: Ludwin Mcdonnell MD [Primary Care Provider] -
[2016-11-21] MEDS: DANTROLENE SODIUM IVPB SCH (18:03)
[2016-11-21] MEDS: WATER FOR INJ IVPB SCH (18:03)
[2016-11-21] MEDS: *HR* Heparin 5,000 UNIT/ML VIAL SQ SCH (18:15)
[2016-11-21] MEDS: Acetaminophen 650 MG RECTAL SUPP RC PRN (20:17)
[2016-11-22] MEDS: WATER FOR INJ IVPB SCH ×5 (00:53→23:58)
[2016-11-22] MEDS: DANTROLENE SODIUM IVPB SCH ×5 (00:53→23:58)
[2016-11-22] MEDS: Insulin LISPRO 300 UNITS/3 ML VIAL SQ SCH ×5 (00:54→23:09)
[2016-11-22 04:09] LABS: Basophils # 0.1 K/mcL (0.0-0.2); Basophils % 0.3 %; Eosinophils % 0.1 %; Hematocrit 40.9 % (35.3-44.9); Hemoglobin 13.3 g/dL (11.5-15.4); Immature Granulocytes % 0.5 % (0-4); Lymphocytes # 4.2 K/mcL (0.6-4.6); Lymphocytes % 26.9 %; Mean Corpuscular HGB Conc 32.5 g/dL (31.6-35.5); Mean Corpuscular Hemoglobin 30.2 pg (28.0-33.3); Mean Platelet Volume 10.4 fL (9.4-12.4); Monocytes # 1.2 K/mcL (0.0-1.3); Monocytes % 7.5 %; Platelet Count 266 K/mcL (140-400); Segmented Neutrophils % 64.7 %
[2016-11-22] MEDS: Acetaminophen 650 MG RECTAL SUPP RC PRN (04:23)
[2016-11-22 04:24] LABS: Alanine Aminotransferase 66 Units/L (0-55); Aspartate Amino Transferase 43 Units/L (5-34); Creatine Kinase 525 Units/L (29-168)
[2016-11-22] MEDS: *HR* Heparin 5,000 UNIT/ML VIAL SQ SCH ×3 (06:45→20:41)
[2016-11-22] MEDS: 0.9 % Sodium Chloride 1,000 ML IVC SCH ×2 (06:46→18:42)
--- NOTE | 2016-11-22 07:28 | Neurology Progress Note ---
Date of Encounter: 11/22/16 Time of Encounter: 07:26 Assessment and Plan (1) Parkinsonism Current Visit: Yes Status: Acute Suspect NMS. R/O JACK PRIZER infection. LP pending. Continue dantrolene. Rec psychiatry eval. Recommenc ID eval. Will check lactate. 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, unspecified Subjective Interval history: Chart reviewed, pt. was seen and examined. Case discussed with nursing. Pt. remains lethargic. She does make eye contact. She was able to correctly identify 2 fingers held in front of her. She is less rigid today. Still febrile. CPK slightly increased, WBC's slightly decreased. LFT's essentially unchanged. [place] level absent in serum. LP pending. Objective - Constitutional Vitals: Temp Pulse Resp BP Pulse Ox 99.6 F 86 36 157/90 97 11/22/16 06:33 11/22/16 06:33 11/22/16 06:33 11/22/16 06:33 11/22/16 06:33 - Neurological Exam Additional comments: See subjective. Results - Laboratory Findings CBC and BMP: 11/22/16 03:53 11/21/16 09:44 Abnormal lab findings: Abnormal lab results WBC 15.5 K/mcL (4.3-11.1) H 11/22/16 03:53 Neutrophils # 10.0 K/mcL (1.6-8.9) H 11/22/16 03:53 Sodium 148 mEq/L (136-145) H 11/21/16 09:44 Potassium 3.4 mEq/L (3.5-4.5) L 11/21/16 09:44 Chloride 114 mEq/L (98-109) H 11/21/16 09:44 BUN 26 mg/dL (7-20) H 11/21/16 09:44 BUN/Creatinine Ratio 33 (6-26) H 11/21/16 09:44 Glucose 189 mg/dL (70-99) H 11/21/16 09:44 POC Glucose 194 (58-89) H 11/22/16 00:09 Calculated Osmolality 316 (280-300) H 11/21/16 09:44 AST 43 Units/L (5-34) H 11/22/16 03:53 ALT 66 Units/L (0-55) H 11/22/16 03:53 Creatine Kinase 525 Units/L (29-168) H 11/22/16 03:53 Serum Total Protein 5.6 g/dL (6.0-8.3) L 11/21/16 09:44 Albumin 2.7 g/dL (3.5-5.0) L 11/21/16 09:44 Albumin/Globulin Ratio 0.9 (1.1-2.2) L 11/21/16 09:44 [place] < 0.1 mEq/L (0.6-1.2) L 11/21/16 14:22 Consult Discharge Plan - Plan Referrals: Ludwin Mcdonnell MD [Primary Care Provider] -
[2016-11-22] MEDS ORDERED: *HR* Midazolam HCl 2 MG/2 ML VIAL IV ONE (07:34)
[2016-11-22 07:56] LABS: INR 1.2; Prothrombin Time 13.4 Seconds (9.4-12.1)
[2016-11-22] MEDS: Gabapentin 100 MG CAPSULE PO SCH (08:59)
[2016-11-22] MEDS: Divalproex (12 HR) 500 MG TABLET PO SCH (08:59)
[2016-11-22] MEDS: Ascorbic Acid 500 MG TABLET PO SCH (09:00)
[2016-11-22] MEDS: Pantoprazole 40 MG VIAL IVP SCH (09:00)
[2016-11-22] MEDS: Multivit/Ca/Min/Fe/FA 1 TAB TABLET PO SCH (09:00)
[2016-11-22 09:26] LABS: BUN/Creatinine Ratio 30 (6-26); Blood Urea Nitrogen 25 mg/dL (7-20); Calcium 8.7 mg/dL (8.6-10.8); Carbon Dioxide 24 mEq/L (19-29); Chloride 114 mEq/L (98-109); Glucose 228 mg/dL (70-99); Osmolality,Calculated 318 (280-300); Potassium 3.4 mEq/L (3.5-4.5); Sodium 148 mEq/L (136-145); eGFR For African Americans > 60 (> 60); eGFR For Non-African Americans > 60 (> 60)
[2016-11-22] MEDS ORDERED: Aminoglycoside Consult 1 EACH MC ONE (09:59)
[2016-11-22 12:28] LABS: Red Blood Cell,CSF 0.042 M/mcL
[2016-11-22 12:42] LABS: Glucose,CSF 151 mg/dL (40-70)
[2016-11-22 12:56] LABS: Appearance,CSF Bloody (Clear)
[2016-11-22 13:18] LABS: Total Protein,CSF 224 mg/dL (15-45)
--- NOTE | 2016-11-22 15:25 | Consult Note ---
Date of Encounter: 11/22/16 Time of Encounter: 15:00 Assessment & Recommendation (1) Delirium Current visit: Yes Status: Acute Assessment & Recommendation: Patient has urinary tract infection. Some of her mental status changes could be secondary to infection. Also, patient did have a slightly elevated CK level but not the levels that are normally seen with neuroleptic malignant syndrome. Per staff patient has improved some since starting the dantrolene. Agree with discontinuing Haldol and lithium. Would also recommend discontinuing nortriptyline as this medication can exacerbate confusion and delirium in the elderly. Unsure of why the Depakote is being prescribed at this time would confirm its purpose. If it is for psychiatric issues consider tapering this as well until patient has returned to baseline. Staff contacted brother who is the patient's POA. He reports the patient has been taken off Ativan. Unsure of how long ago this occurred but patient could be responding negatively to taper off benzodiazepines. No evidence for malignant catatonia or other catatonia at this time because of all the other exacerbating issues. Usual treatment for catatonia is Ativan challenge but at this time patient is confused and sedated and I do not recommend this. If patient's cognition does not continue to improve we may consider this later. (2) Dementia Current visit: Yes Status: Acute Assessment & Recommendation: Patient was placed on psych meds likely for behavioral disturbance related to dementia. Would recommend outpatient follow-up with geriatric psychiatrist for appropriate titration of this if necessary. Qualifiers: Dementia type: unspecified type Dementia behavioral disturbance: without behavioral disturbance Qualified Code(s): F03.90 - Unspecified dementia without behavioral disturbance History of Present Illness Patient: new to practice Requesting Physician: Jaydon Zelaya MD Reason for consult: Altered mental status. History of present illness: Ms. Dejesus is a 76 year old female with a past medical history of multiple medical issues including CHF, atrial fibrillation, COPD, dementia presented to the hospital with an altered mental status. She was recently diagnosed with a urinary tract infection. Patient has fever as well as rigidity in her muscles. CK was elevated in the 500s. Patient is answering questions with yes or no answers at times. Staff did call patient's POA who is her brother. Per staff brother states that patient has dementia and some behavioral disturbances related to this. Apparently she was on Ativan for some time and that this was eventually discontinued because she was getting too much of this medication. She was then taking Haldol and lithium apparently for agitation related to dementia. Patient had not been doing well for a couple of months. She was not eating or drinking well prior to admission to the hospital and it is unclear how long she may have been off the Haldol the lithium. Patient has been taking some by mouth meds intermittently here in the hospital. She does not appear to be responding to internal stimuli but she is also only occasionally responding to questions from staff as well. CC: Jaydon Zelaya MD Past Med Surg Social Fam HX - Past Medical History Medical history: arthritis, asthma, atrial fibrillation, cardiomyopathy, CHF, COPD, dementia, diabetes, GERD, hyperlipidemia, hypertension, liver disease, osteoporosis - Past Psychiatric History Psychiatric history: Reports: other Past psychiatric history details: History of dementia. Some behavioral disturbance related to dementia. - Social History Smoking Status: Former smoker Smokeless Tobacco Status: No Alcohol use: none Drug use: none Medications & Allergies Acetaminophen [Tylenol] 650 mg PO Q6HR PRN 11/19/16 [History] Albuterol Sulfate [Albuterol Inhaler] 1 puff IH Q4HR PRN 11/19/16 [History] Ascorbate Calcium [Vitamin C] 500 mg PO DAILY 11/19/16 [History] Citalopram [CeleXA] 10 mg PO DAILY 11/19/16 [History] Divalproex (12 HR) [Depakote (12 HR)] 1,000 mg PO DAILY 11/19/16 [History] Docusate [Colace] 100 mg PO BID 11/19/16 [History] Gabapentin [Neurontin] 300 mg PO BID 11/19/16 [History] Glimepiride [Amaryl] 2 mg PO 0800 11/19/16 [History] Haloperidol [Haldol] 5 mg PO TID 11/19/16 [History] Insulin ASPART [NovoLOG] 0 - 12 unit SQ TID PRN 11/19/16 [History] Insulin Glargine [Lantus] 30 unit SQ HS 11/19/16 [History] Iron,Carbonyl [Feosol] 325 mg PO QAM 11/19/16 [History] Lisinopril [Zestril] 10 mg PO DAILY 11/19/16 [History] [place] [place] Carbonate 300 mg PO DAILY 11/19/16 [History] Metoclopramide [Reglan] 10 mg PO TID 11/19/16 [History] Multivitamin-Min/Iron/FA/Vit K [Multi-Day Plus Minerals Tablet] 1 each PO DAILY 11/19/16 [History] Naproxen [Naprosyn] 500 mg PO Q12H PRN 11/19/16 [History] Nortriptyline [Pamelor] 25 mg PO HS 11/19/16 [History] Omeprazole [PriLOSEC] 20 mg PO DAILY 11/19/16 [History] Ondansetron HCl [Zofran] 4 mg PO Q8H PRN 11/19/16 [History] Polyethylene Glycol [Polyox Wsr-301] 17 gm MC BID 11/19/16 [History] Pravastatin Sodium 10 mg PO DAILY 11/19/16 [History] Sodium Chloride 1,000 mg PO BID 11/19/16 [History] Zolpidem [Ambien] 5 mg PO HS 11/19/16 [History] metFORMIN [Glucophage] 1,000 mg PO BIDWM 11/19/16 [History] traZODone [TraZODone] 100 mg PO HS 11/19/16 [History] 3 Allergy/AdvReac Type Severity Reaction Status Date / Time codeine Allergy Vomiting Verified 12/27/15 10:50 iodine Allergy See Verified 11/19/16 09:05 Comments propoxyphene [From [place]] Allergy Vomiting Verified 11/19/16 09:05 Review of Systems ROS unobtainable: due to patient condition Mental Status Exam Patient orientation: Yes Person Level of alertness: Sedated Patient appearance: Unkempt Psychomotor activity: Slowed Eye contact: Diverts Contact Mood description: Other (sleepy) Affect description: blunted Speech pattern: Slowed Speech volume: Soft/Quiet Thought process: [place], Slowed Thinking Thought content: No Suicidal ideation, No Homicidal ideation Attention span: Unable to Focus, Unable to Sustain Attention Memory description: Immediate Impaired, Recent Impaired, Remote Impaired Patient reliability: Not Reliable Historian Judgment: Poor Insight: None Results - Vital Signs Vital signs: Temp Pulse Resp BP Pulse Ox 97.7 F 83 22 147/80 99 11/22/16 12:00 11/22/16 12:00 11/22/16 12:00 11/22/16 12:00 11/22/16 12:00 - Labs Labs: Laboratory Last Values WBC 15.5 K/mcL (4.3-11.1) H 11/22/16 03:53 RBC 4.40 M/mcL (3.82-4.97) 11/22/16 03:53 Hgb 13.3 g/dL (11.5-15.4) 11/22/16 03:53 Hct 40.9 % (35.3-44.9) 11/22/16 03:53 MCV 93.0 fL (83.0-100.0) 11/22/16 03:53 MCH 30.2 pg (28.0-33.3) 11/22/16 03:53 MCHC 32.5 g/dL (31.6-35.5) 11/22/16 03:53 RDW 13.0 % (11.5-14.5) 11/22/16 03:53 Plt Count 266 K/mcL (140-400) 11/22/16 03:53 MPV 10.4 fL (9.4-12.4) 11/22/16 03:53 Immature Gran % 0.5 % (0-4) 11/22/16 03:53 Seg Neutrophils % 64.7 % 11/22/16 03:53 Lymphocytes % 26.9 % 11/22/16 03:53 Monocytes % 7.5 % 11/22/16 03:53 Eosinophils % 0.1 % 11/22/16 03:53 Basophils % 0.3 % 11/22/16 03:53 Neutrophils # 10.0 K/mcL (1.6-8.9) H 11/22/16 03:53 Lymphocytes # 4.2 K/mcL (0.6-4.6) 11/22/16 03:53 Monocytes # 1.2 K/mcL (0.0-1.3) 11/22/16 03:53 Eosinophils # 0.0 K/mcL (0.0-0.6) 11/22/16 03:53 Basophils # 0.1 K/mcL (0.0-0.2) 11/22/16 03:53 PT 13.4 Seconds (9.4-12.1) H 11/22/16 07:34 INR 1.2 11/22/16 07:34 Sodium 148 mEq/L (136-145) H 11/22/16 03:53 Potassium 3.4 mEq/L (3.5-4.5) L 11/22/16 03:53 Chloride 114 mEq/L (98-109) H 11/22/16 03:53 Carbon Dioxide 24 mEq/L (19-29) 11/22/16 03:53 BUN 25 mg/dL (7-20) H 11/22/16 03:53 Creatinine 0.84 mg/dL (0.57-1.11) 11/22/16 03:53 Est GFR ( Amer) > 60 (> 60) 11/22/16 03:53 Est GFR (Non-Af Amer) > 60 (> 60) 11/22/16 03:53 BUN/Creatinine Ratio 30 (6-26) H 11/22/16 03:53 Glucose 228 mg/dL (70-99) H 11/22/16 03:53 POC Glucose 268 (58-89) H 11/22/16 12:35 Calculated Osmolality 318 (280-300) H 11/22/16 03:53 Lactic Acid 0.8 mmol/L (0.5-2.2) 11/22/16 07:39 Calcium 8.7 mg/dL (8.6-10.8) 11/22/16 03:53 Magnesium 1.9 mg/dL (1.6-2.6) 11/20/16 02:28 Total Bilirubin 0.4 mg/dL (0.2-1.2) 11/21/16 09:44 AST 43 Units/L (5-34) H 11/22/16 03:53 ALT 66 Units/L (0-55) H 11/22/16 03:53 Alkaline Phosphatase 73 Units/L (38-126) 11/21/16 09:44 Creatine Kinase 525 Units/L (29-168) H 11/22/16 03:53 Troponin I 0.03 ng/mL (0-0.03) 11/20/16 02:28 Serum Total Protein 5.6 g/dL (6.0-8.3) L 11/21/16 09:44 Albumin 2.7 g/dL (3.5-5.0) L 11/21/16 09:44 Globulin 2.9 g/dL (2.4-3.5) 11/21/16 09:44 Albumin/Globulin Ratio 0.9 (1.1-2.2) L 11/21/16 09:44 CSF Volume 4.0 mL 11/22/16 11:49 CSF Appearance Bloody (Clear) 11/22/16 11:49 CSF Color Red (Colorless) 11/22/16 11:49 CSF RBC 0.042 M/mcL (0.000-0.002) H 11/22/16 11:49 CSF Tot Nucleated Cells 60 TNC/mcL (0-5) H* 11/22/16 11:49 CSF Seg Neutrophils 93.0 % 11/22/16 11:49 CSF Band Neutrophils % Test Not Performed 11/22/16 11:49 CSF Lymphocytes % 7.0 % 11/22/16 11:49 CSF Monocytes % Test Not Performed 11/22/16 11:49 CSF Eosinophils % Test Not Performed 11/22/16 11:49 CSF Basophils % Test Not Performed 11/22/16 11:49 CSF Other Cells % Test Not Performed 11/22/16 11:49 CSF Glucose 151 mg/dL (40-70) H 11/22/16 11:49 CSF Xanth Comm Not Observed (Not Observe) 11/22/16 11:49 CSF Total Protein 224 mg/dL (15-45) H 11/22/16 11:49 [place] < 0.1 mEq/L (0.6-1.2) L 11/21/16 14:22 - Impressions Impressions Lumbar Puncture Fluoroscopy 11/22/16 07:22 IMPRESSION: Successful fluoroscopic-guided lumbar puncture. Hemorrhagic CSF was encountered, which is likely related to traumatic tap. D/ / 11/22/2016 12:48:38 Burt Enriquez MD / earno Interpreting Provider: Burt Enriquez MD Consult Discharge Plan - Plan Referrals: Ludwin Mcdonnell MD [Primary Care Provider] -
--- NOTE | 2016-11-22 15:56 | Infectious Disease Consult ---
Date of Encounter: 11/22/16 Time of Encounter: 15:56 Assessment and Plan (1) Sepsis Status: Acute Qualifiers: Sepsis type: sepsis due to unspecified organism Qualified Code(s): A41.9 - Sepsis, unspecified organism (2) Aseptic meningitis Status: Acute Assessment and plan: cause? does not appear to be bacterial likely viral vs other hsv pcr ordered, late in the season for arbovirus consider checking adenovirus pcr (3) UTI (urinary tract infection) Status: Acute Assessment and plan: causative organism proteus mirabilis resistant to bactrim, fluoroquionolones and nitrofurantoin pt on rocephin Qualifiers: Urinary tract infection type: acute cystitis Hematuria presence: without hematuria Qualified Code(s): N30.00 - Acute cystitis without hematuria (4) Altered mental state Status: Acute Assessment and plan: apparently chronic per nursing staff CT suggesting multiple infarcts MRI shows no acute processes LP noted aseptic meningitis (elevated WBC 64 with normal glucose and protein); bacterial meningitis unlikely, concern for viral vs other; i ordered csf hsv pcr and spoke with lab to make sure it gets done. for now we will continue acyclovir (doses appropriately for CrCl of 65) appreciate neurology and psycho eval and recommendations failed swallow eval, currently not being fed will decrease rocephin to 1 gram daily follow up on csf cultures, pcr Qualifiers: Altered mental status type: stupor Qualified Code(s): R40.1 - Stupor (5) Diabetes Status: Chronic Qualifiers: Diabetes mellitus type: type 2 Diabetes mellitus complication status: without complication Diabetes mellitus cyanide pot tender insulin use: with retirement use Qualified Code(s): E11.9 - Type 2 diabetes mellitus without complications ; Z79.4 - snf (current) use of insulin; Z79.4 - snf (current) use of insulin; Z79.4 - snf (current) use of insulin; Z79.4 - snf ( current) use of insulin (6) Hypertension Status: Chronic Qualifiers: Hypertension type: essential hypertension Qualified Code(s): I10 - Essential (primary) hypertension (7) COPD (chronic obstructive pulmonary disease) Status: Chronic Qualifiers: COPD type: unspecified COPD Qualified Code(s): J44.9 - Chronic obstructive pulmonary disease, unspecified (8) CHF (congestive heart failure) Status: Chronic Qualifiers: Congestive heart failure type: unspecified congestive heart failure type Congestive heart failure chronicity: chronic Qualified Code(s): I50.9 - Heart failure, unspecified (9) Dementia Status: Acute Qualifiers: Dementia type: unspecified type Dementia behavioral disturbance: without behavioral disturbance Qualified Code(s): F03.90 - Unspecified dementia without behavioral disturbance (10) Parkinsonism Status: Acute 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 neuro and psych following and i appreciate their input Infectious Disease HPI - Data of Consult Patient: new to practice Consult date: 11/22/16 Requesting Physician: Jaydon Zelaya MD Primary Care Provider: Ludwin Mcdonnell MD - Consult Narrative Reason for consult: AMS and sepsis History of present illness: Ms. Dejesus is a 76 year old female Patient is 76-year-old woman admitted to [facility] on 11/19/16 for altered mental status we are consult to done 11/22/16 for fever, leukocytosis and concern for nuchal rigidity and year tract infections. Patient is an 6-year-old woman with past medical history significant for A. fib , CHF, COPD, dementia, diabetes mellitus type 2, hyperlipidemia, hypertension and liver disease came in to [facility] for altered mental status. Was information was taken from medical records. Apparently patient was recently diagnosed with urinary tract infection and was receiving Bactrim orally. 24 hours prior to admission patient started getting progressively worsening mental status and was unable to ambulate or even feed herself. Patient does have baseline dementia but she was fully functional and family reports that she was unable to carry on a conversation. Patient arrived at [place] emergency department for evaluation where apparently she was noted to be febrile with temperature of 100.9 and had leukocytosis with WBC of 19,000. Patient had a UA done which indicated a UTI CT of the head was obtained which was concerning for acute to subacute left occipital infarct. Sepsis protocol was followed and patient was transferred to [facility] for further evaluation. Since admission, patient has been febrile with a MAXIMUM TEMPERATURE of 102. Patient has also been tachycardic. Labs revealed a WBC count of 17.8 thousand with normal differential. Lactic acid was within normal limit creatinine was normal but BUN was elevated. Patient also had elevated CK enzyme and mildly elevated LFTs. An LP was done on the patient and it revealed pleocytosis of 60 with 93% neutrophils. RBCs were 42. Glucose was 151 compared to 228 Anaplasma and CSF protein of 224. Urine culture that was obtained on 11/17/16 grew Proteus mirabilis that was resistant to fluoroquinolones, nitrofurantoin and trimethoprim sulfa. A brain MRI was done which showed no acute intracranial abnormality. Patient has been on Rocephin 2 g IV every 24 hours and acyclovir 750 mg every 8 hours. We were asked to evaluate the patients make further recommendations. upon evaluation, patient laying in bed unresponsive. Breathing okay. does not follow commands. No family at bed side, i called nursing and discussed with them, apparently her mentation has deteriorated over 2 months to this. brother is poa and as of now code status is full code. Nursing tell me she had a swallow eval which revealed delayed swollowing. currently patient not being fed. she has no bed ulcers. good urine output. overall appears very poor condition CC: Jaydon Zelaya MD Past Med Surg Social Fam HX - Past Medical History Medical history: arthritis, asthma, atrial fibrillation, cardiomyopathy, CHF, COPD, dementia, diabetes, GERD, hyperlipidemia, hypertension, liver disease, osteoporosis Psychiatric history: other - Social History Smoking Status: Former smoker Smokeless Tobacco Status: No Alcohol use: none Drug use: none Infectious Disease-CN:Meds Acetaminophen [Tylenol] 650 mg PO Q6HR PRN 11/19/16 [History] Albuterol Sulfate [Albuterol Inhaler] 1 puff IH Q4HR PRN 11/19/16 [History] Ascorbate Calcium [Vitamin C] 500 mg PO DAILY 11/19/16 [History] Citalopram [CeleXA] 10 mg PO DAILY 11/19/16 [History] Divalproex (12 HR) [Depakote (12 HR)] 1,000 mg PO DAILY 11/19/16 [History] Docusate [Colace] 100 mg PO BID 11/19/16 [History] Gabapentin [Neurontin] 300 mg PO BID 11/19/16 [History] Glimepiride [Amaryl] 2 mg PO 0800 11/19/16 [History] Haloperidol [Haldol] 5 mg PO TID 11/19/16 [History] Insulin ASPART [NovoLOG] 0 - 12 unit SQ TID PRN 11/19/16 [History] Insulin Glargine [Lantus] 30 unit SQ HS 11/19/16 [History] Iron,Carbonyl [Feosol] 325 mg PO QAM 11/19/16 [History] Lisinopril [Zestril] 10 mg PO DAILY 11/19/16 [History] [place] Carbonate 300 mg PO DAILY 11/19/16 [History] Metoclopramide [Reglan] 10 mg PO TID 11/19/16 [History] Multivitamin-Min/Iron/FA/Vit K [Multi-Day Plus Minerals Tablet] 1 each PO DAILY 11/19/16 [History] Naproxen [Naprosyn] 500 mg PO Q12H PRN 11/19/16 [History] Nortriptyline [Pamelor] 25 mg PO HS 11/19/16 [History] Omeprazole [PriLOSEC] 20 mg PO DAILY 11/19/16 [History] Ondansetron HCl [Zofran] 4 mg PO Q8H PRN 11/19/16 [History] Polyethylene Glycol [Polyox Wsr-301] 17 gm MC BID 11/19/16 [History] Pravastatin Sodium 10 mg PO DAILY 11/19/16 [History] Sodium Chloride 1,000 mg PO BID 11/19/16 [History] Zolpidem [Ambien] 5 mg PO HS 11/19/16 [History] metFORMIN [Glucophage] 1,000 mg PO BIDWM 11/19/16 [History] traZODone [TraZODone] 100 mg PO HS 11/19/16 [History] 3 Allergy/AdvReac Type Severity Reaction Status Date / Time codeine Allergy Vomiting Verified 12/27/15 10:50 iodine Allergy See Verified 11/19/16 09:05 Comments propoxyphene [From Darvon] Allergy Vomiting Verified 11/19/16 09:05 ROS unobtainable: due to mental status Exam - Constitutional Vitals: Temp Pulse Resp BP Pulse Ox 97.7 F 83 22 147/80 99 11/22/16 12:00 11/22/16 12:00 11/22/16 12:00 11/22/16 12:00 11/22/16 12:00 General appearance: no cooperative, no no acute distress Exam: unresponsive, does not follow command, nursing tells me that's how she was all day - Head Head exam: Present: atraumatic, normocephalic - Eye Eye exam: Present: EOMI, PERRL, sclera anicteric - ENT ENT exam: Present: mucous membranes dry Additional comments: no oral thrush - Neck Additional comments: no neck stiffness. no masses - Respiratory Additional comments: air sounds audible both lung villasenor, chest expanding symmetrically - Cardiovascular Cardiovascular exam: Absent: RRR Additional comments: didnt appreciate any murmur - GI/Abdominal GI/Abdominal exam: Present: hypoactive bowel sounds, soft. Absent: guarding - Extremities Exam Extremities exam: Present: normal inspection Additional comments: adequate perfusion - Neurological Exam Neurological exam: Absent: alert, oriented X3 - Skin Skin exam: Present: rash Additional comments: yeast rash in the groin area Infectious Disease CN: Results - Labs CBC & Chem 7: 11/22/16 03:53 11/22/16 03:53 Serology: Serology 11/22/16 Range/Units 11:49 CSF Volume 4.0 mL CSF Appearance Bloody (Clear) CSF Color Red (Colorless) CSF RBC 0.042 H (0.000 - 0.002) M/mcL CSF Tot Nucleated Cells 60 H* (0-5) TNC/mcL CSF Seg Neutrophils 93.0 % CSF Band Neutrophils % Test Not Performed CSF Lymphocytes % 7.0 % CSF Monocytes % Test Not Performed CSF Eosinophils % Test Not Performed CSF Basophils % Test Not Performed CSF Other Cells % Test Not Performed CSF Glucose 151 H (40-70) mg/dL CSF Xanth Comm Not Observed (Not Observe) CSF Total Protein 224 H (15-45) mg/dL Consult Discharge Plan - Plan Referrals: Ludwin Mcdonnell MD [Primary Care Provider] -
[2016-11-22 18:00] LABS: ABG Base Excess 3 mEq/L (-2 to 3); ABG HCO3 28 mEq/L (21-27); ABG Oxygen Saturation 50 % (95-98); ABG PCO2 44 mmHg (35-45); ABG PH 7.41 pH Units (7.32-7.45); ABG PO2 27 mmHg (85-104); ABG TCO2 29 mEq/L (20-26)
--- NOTE | 2016-11-22 18:23 | Internal Med Progress Note ---
Date of Encounter: 11/22/16 Time of Encounter: 18:18 - Subjective Interval history: The patient became hypoxic and altered and a rapid response was called at 6:42 PM. I arrived at the bedside at 6:45 PM. The patient was unresponsive and she was actively being ventilated through an ET tube with a bag and Peep valve. Her oxygen saturation was in the low 70s. Per respiratory the patient was getting mouth care when suddenly she started desaturating. Her oxygen saturation dropped as low as mid 60s. They placed the patient on BiPAP and did an ABG. Her oxygen saturation did not improve and they called a rapid response. At the same time they decided to intubate the patient and therefore the patient was intubated prior to our arrival. Currently the patient is unresponsive being ventilated. ET tube is 22 cm at the lip. Trachea is in the midline. Heart is regular S1-S2 no murmurs lungs auscultation reveals normal breath sounds on the left and absent breath sounds on the right lung field. Chest percussion reveals normal resonance bilaterally. Abdomen is soft nontender nondistended. An ABG was reviewed and showed pH of 7.4, PCO2 of 40 and PO2 of 27 with an oxygen saturation of 50%. I obtained a stat blood glucose which was 200. Blood pressure was 120/77. Repeat blood pressure was starting to drop to 88/60. I called and discussed the case with the manager story STAT. He suggested possibility of aspiration versus pneumothorax versus left mainstem bronchus intubation. We transfer the patient to the ICU and we obtained a chest x-ray stat which I reviewed personally and discussed the cardiothoracic surgeon. Chest x-ray reveals adequate ET tube position and when the tip 2.5 cm above the enio. There is a right lower lobe infiltrate. There is no pneumothorax. After transferring the patient to the ICU 10 mL of normal saline was instilled and a T-tube and suctioned out and oxygen saturation improved to 99% on the vent. Assessment: Acute aspiration event with plugging of the right mainstem bronchus. Acute hypoxic respiratory failure due to aspiration Neuroleptic malignant syndrome Aspiration pneumonia type 2 diabetes Plan: ET tube suctioning. Continue mechanical ventilation. Continue IV antibiotics. Broaden coverage to cover resistant gram-negative rods and anaerobes. Repeat ABG. Consult pulmonary service. Start IV fluids. DVT prophylaxis. GI prophylaxis. Insulin sliding scale. CODE STATUS was discussed by my partner Dr. Moore with the patient's POA who affirms that the patient is to remain full code at this time. The high probability of emergent and significant clinical decompensation with potential impairment of organ function including respiratory and cardiovascular systems required my full attention and presence at the bedside. I spent 40 minutes of critical care time which involved decision making of high complexity to assess, manipulate, and support vital organ system, in order to prevent further life threatening deterioration of the patient's condition. The critical care time was spent in the patient's room and/or its close proximity and involved obtaining updated history from nursing staff and providers, examining the patient, reviewing EKGs, imaging studies and laboratory data, discussing the case with consultants, ordering medications and further tests, and reevaluating for clinical response. The time took to perform any procedures was not included in the critical care time quoted above and is billed separately. - Constitutional Vitals: Temp Pulse Resp BP Pulse Ox 98.0 F 101 26 164/104 99 11/22/16 16:15 11/22/16 18:00 11/22/16 16:15 11/22/16 16:15 11/22/16 18:00 General appearance: Present: A&O X 1 Internal Medicine: Result - Labs CBC & Chem 7: 11/22/16 03:53 11/22/16 03:53 Labs: Short CBC 11/22/16 Range/Units 03:53 WBC 15.5 H (4.3-11.1) K/mcL Hgb 13.3 (11.5-15.4) g/dL Hct 40.9 (35.3-44.9) % Plt Count 266 (140-400) K/mcL Neutrophils # 10.0 H (1.6-8.9) K/mcL BMP 11/22/16 03:53 Sodium 148 H Potassium 3.4 L Chloride 114 H Carbon Dioxide 24 BUN 25 H Creatinine 0.84 Glucose 228 H Calcium 8.7 Liver Function 11/22/16 Range/Units 03:53 AST 43 H (5-34) Units/L ALT 66 H (0-55) Units/L - ABG Interpretation ABG results: ABG ABG pH 7.41 pH Units (7.32-7.45) 11/22/16 17:52 ABG pCO2 44 mmHg (35-45) 11/22/16 17:52 ABG pO2 27 mmHg (85-104) L* 11/22/16 17:52 ABG O2 Saturation 50 % (95-98) L 11/22/16 17:52 PT/INR, D-dimer PT 13.4 Seconds (9.4-12.1) H 11/22/16 07:34 - Impressions Impressions Lumbar Puncture Fluoroscopy 11/22/16 07:22 IMPRESSION: Successful fluoroscopic-guided lumbar puncture. Hemorrhagic CSF was encountered, which is likely related to traumatic tap. D/ / 11/22/2016 12:48:38 Burt Enriquez MD / earnold Interpreting Provider: Burt Enriquez MD Consult Discharge Plan - Plan Referrals: Ludwin Mcdonnell MD [Primary Care Provider] -
--- NOTE | 2016-11-22 18:36 | Internal Med Progress Note ---
Date of Encounter: 11/22/16 Time of Encounter: 11:00 - Assessment and plan (1) Sepsis Current Visit: Yes Status: Acute Assessment and plan: -Suspect secondary to acute cystitis. -Continue IV ceftriaxone -Concerns for nuchal rigidity that could be secondary to NMS versus meningitis. -Neurology following with recommendations for treatment of NMS with dantrolene -An LP was done earlier today to rule out infectious source; ceftriaxone and acyclovir had been started -Infectious disease has been consulted and appreciate recommendations. Qualifiers: Sepsis type: sepsis due to unspecified organism Qualified Code(s): A41.9 - Sepsis, unspecified organism (2) Parkinsonism Current Visit: Yes Status: Acute Assessment and plan: -Neurology consulted with recommendations for treating suspected NMS with Dantrolene. -Recommendations to discontinue Haldol and metoclopramide in addition to psychiatry consult to rule out malignant catatonia. 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, unspecified (3) Diabetes Current Visit: No Status: Chronic Assessment and plan: -Controlled;continue home meds Qualifiers: Diabetes mellitus type: type 2 Diabetes mellitus complication status: without complication Diabetes mellitus termination clerk insulin use: with termination clerk use Qualified Code(s): E11.9 - Type 2 diabetes mellitus without complications ; Z79.4 - residential (current) use of insulin; Z79.4 - residential (current) use of insulin; Z79.4 - technician terminal and repeater (current) use of insulin; Z79.4 - residential ( current) use of insulin (4) Hypertension Current Visit: No Status: Chronic Assessment and plan: Continue home meds Qualifiers: Hypertension type: essential hypertension Qualified Code(s): I10 - Essential (primary) hypertension (5) COPD (chronic obstructive pulmonary disease) Current Visit: No Status: Chronic Assessment and plan: Stable; continue home meds Qualifiers: COPD type: unspecified COPD Qualified Code(s): J44.9 - Chronic obstructive pulmonary disease, unspecified (6) CHF (congestive heart failure) Current Visit: No Status: Chronic Assessment and plan: -Stable as patient has been euvolemic Continue home meds Qualifiers: Congestive heart failure type: unspecified congestive heart failure type Congestive heart failure chronicity: chronic Qualified Code(s): I50.9 - Heart failure, unspecified (7) DVT prophylaxis Current Visit: Yes Status: Acute Assessment and plan: Heparin subcutaneous - Subjective Interval history: Patient continues to have generalized rigidity and with hyperthermia. She continues to have altered mental status. Family who is present at bedside reports the symptoms have been present for several weeks and she has progressively gotten worse. - Constitutional Vitals: Temp Pulse Resp BP Pulse Ox 98.0 F 101 19 103/68 100 11/22/16 16:15 11/22/16 18:00 11/22/16 18:23 11/22/16 18:23 11/22/16 18:23 General appearance: Present: A&O X 0, A&O X 1 - Cardiovascular Cardiovascular exam: Present: RRR, +S1, +S2. Absent: diastolic murmur, gallop, rubs, systolic murmur Internal Medicine: Result - Labs CBC & Chem 7: 11/22/16 03:53 11/22/16 03:53 Labs: Short CBC 11/22/16 Range/Units 03:53 WBC 15.5 H (4.3-11.1) K/mcL Hgb 13.3 (11.5-15.4) g/dL Hct 40.9 (35.3-44.9) % Plt Count 266 (140-400) K/mcL Neutrophils # 10.0 H (1.6-8.9) K/mcL BMP 11/22/16 03:53 Sodium 148 H Potassium 3.4 L Chloride 114 H Carbon Dioxide 24 BUN 25 H Creatinine 0.84 Glucose 228 H Calcium 8.7 Liver Function 11/22/16 Range/Units 03:53 AST 43 H (5-34) Units/L ALT 66 H (0-55) Units/L - ABG Interpretation ABG results: ABG ABG pH 7.41 pH Units (7.32-7.45) 11/22/16 17:52 ABG pCO2 44 mmHg (35-45) 11/22/16 17:52 ABG pO2 27 mmHg (85-104) L* 11/22/16 17:52 ABG O2 Saturation 50 % (95-98) L 11/22/16 17:52 PT/INR, D-dimer PT 13.4 Seconds (9.4-12.1) H 11/22/16 07:34 - Impressions Impressions Lumbar Puncture Fluoroscopy 11/22/16 07:22 IMPRESSION: Successful fluoroscopic-guided lumbar puncture. Hemorrhagic CSF was encountered, which is likely related to traumatic tap. D/ / 11/22/2016 12:48:38 Burt Enriquez MD / earnold Interpreting Provider: Burt Enriquez MD Consult Discharge Plan - Plan Referrals: Ludwin Mcdonnell MD [Primary Care Provider] -
[2016-11-22 18:41] LABS: ABG Base Excess 3 mEq/L (-2 to 3); ABG HCO3 27 mEq/L (21-27); ABG Oxygen Saturation 99 % (95-98); ABG PCO2 42 mmHg (35-45); ABG PH 7.43 pH Units (7.32-7.45); ABG PO2 147 mmHg (85-104); ABG TCO2 29 mEq/L (20-26); Blood Gas Modality ASSIST CONTROL; Blood Gas PEEP 5 cm H2O; Blood Gas Respiration Rate 14; Blood Gas VT 550 cc
[2016-11-22] MEDS ORDERED: Naloxone 0.4 MG/ML INJ IVP PRN (18:50)
--- NOTE | 2016-11-22 18:51 | Event Note ---
Date of Encounter: 11/22/16 Time of Encounter: 17:45 Rapid response was called late this afternoon Upon arriving at bedside patient was in acute on chronic hypoxic respiratory failure oxygen saturation in the 50s. She was intubated via respiratory therapist and transferred to ICU for further management. The patient was intubated mucous plug was pulled She remains on ventilator with propofol and care with be transferred to [facility]. POA and brother MAKENZIE Metzger was updated on patient's critical condition and he verbalized understanding.
[2016-11-22] MEDS ORDERED: Lacri-Lube 3.5 GM TUBE BOTH EYES PRN (18:55)
[2016-11-22] MEDS ORDERED: Vancomycin 1,250 MG in D5% in Water 250 ML IVPB ONE (19:00)
[2016-11-22] MEDS: Acyclovir 750 MG in D5% in Water 250 ML IVPB SCH ×2 (20:03→23:08)
[2016-11-22] MEDS: FentaNYL (PF) 1,000 MCG in 0.9 % Sodium Chloride 80 ML IVC SCH (20:04)
[2016-11-22] MEDS: Miconazole w/zinc oxide&karaya 92 APPL/92 GM TUBE TP SCH (20:05)
[2016-11-22] MEDS: Chlorhexidine Rinse 15 ML MOUTHWASH MM SCH (20:34)
[2016-11-22] MEDS: Lacri-Lube 3.5 GM TUBE BOTH EYES SCH ×2 (20:36→23:09)
[2016-11-22 22:08] LABS: ABG Base Excess 2 mEq/L (-2 to 3); ABG HCO3 26 mEq/L (21-27); ABG Oxygen Saturation 100 % (95-98); ABG PCO2 38 mmHg (35-45); ABG PH 7.45 pH Units (7.32-7.45); ABG PO2 176 mmHg (85-104); ABG TCO2 27 mEq/L (20-26); Blood Gas Modality ASSIST CONTROL; Blood Gas PEEP 5 cm H2O; Blood Gas Respiration Rate 18; Blood Gas VT 380 cc
[2016-11-22] MEDS: Piperacillin/Tazobactam 3.375 GM in D5% in Water (Mini-Bag+) 100 ML IVPB SCH (23:09)
[2016-11-23] MEDS: Lacri-Lube 3.5 GM TUBE BOTH EYES SCH ×5 (03:18→20:16)
[2016-11-23 04:15] LABS: Basophils # 0.1 K/mcL (0.0-0.2); Basophils % 0.3 %; Eosinophils # 0.1 K/mcL (0.0-0.6); Eosinophils % 0.9 %; Hematocrit 36.3 % (35.3-44.9); Hemoglobin 11.6 g/dL (11.5-15.4); Immature Granulocytes % 0.6 % (0-4); Lymphocytes # 3.5 K/mcL (0.6-4.6); Lymphocytes % 22.2 %; Mean Corpuscular Hemoglobin 30.4 pg (28.0-33.3); Mean Corpuscular Volume 95.3 fL (83.0-100.0); Mean Platelet Volume 11.3 fL (9.4-12.4); Monocytes # 1.2 K/mcL (0.0-1.3); Monocytes % 7.5 %; Neutrophils # 10.8 K/mcL (1.6-8.9); Platelet Count 183 K/mcL (140-400); Red Blood Count 3.81 M/mcL (3.82-4.97); Red Cell Distribution Width 13.1 % (11.5-14.5); Segmented Neutrophils % 68.5 %
[2016-11-23 04:22] LABS: ABG Base Excess 2 mEq/L (-2 to 3); ABG HCO3 26 mEq/L (21-27); ABG Oxygen Saturation 98 % (95-98); ABG PCO2 40 mmHg (35-45); ABG PH 7.43 pH Units (7.32-7.45); ABG PO2 105 mmHg (85-104); ABG TCO2 28 mEq/L (20-26); Blood Gas Modality ASSIST CONTROL
[2016-11-23 04:32] LABS: BUN/Creatinine Ratio 32 (6-26); Blood Urea Nitrogen 30 mg/dL (7-20); Calcium 8.4 mg/dL (8.6-10.8); Carbon Dioxide 24 mEq/L (19-29); Chloride 111 mEq/L (98-109); Glucose 223 mg/dL (70-99); Osmolality,Calculated 309 (280-300); Sodium 143 mEq/L (136-145); eGFR For African Americans > 60 (> 60); eGFR For Non-African Americans 57 (> 60)
[2016-11-23] MEDS: *HR* Heparin 5,000 UNIT/ML VIAL SQ SCH ×3 (05:08→22:33)
[2016-11-23] MEDS: Insulin LISPRO 300 UNITS/3 ML VIAL SQ SCH ×3 (05:08→18:49)
[2016-11-23] MEDS: DANTROLENE SODIUM IVPB SCH ×3 (06:05→20:15)
[2016-11-23] MEDS: WATER FOR INJ IVPB SCH ×3 (06:05→20:15)
[2016-11-23] MEDS ORDERED: Vancomycin 1,250 MG in D5% in Water 250 ML IVPB SCH (07:00)
[2016-11-23] MEDS ORDERED: Potassium Chloride 40 MEQ, Lidocaine 1% 2 ML in D5% in Water 500 ML IVPB ONE (07:10)
[2016-11-23] MEDS: Divalproex (12 HR) 500 MG TABLET PO SCH (07:27)
[2016-11-23] MEDS: Pantoprazole 40 MG VIAL IVP SCH (08:05)
[2016-11-23] MEDS: Chlorhexidine Rinse 15 ML MOUTHWASH MM SCH ×2 (08:05→20:19)
[2016-11-23] MEDS: Piperacillin/Tazobactam 3.375 GM in D5% in Water (Mini-Bag+) 100 ML IVPB SCH ×2 (08:06→16:12)
[2016-11-23] MEDS: Miconazole w/zinc oxide&karaya 92 APPL/92 GM TUBE TP SCH ×2 (08:07→20:17)
[2016-11-23] MEDS: Acyclovir 750 MG in D5% in Water 250 ML IVPB SCH ×2 (08:08→20:19)
[2016-11-23 08:26] LABS: Creatine Kinase 173 Units/L (29-168)
--- NOTE | 2016-11-23 09:41 | Neurology Progress Note ---
Date of Encounter: 11/23/16 Time of Encounter: 09:38 Assessment and Plan (1) Parkinsonism Current Visit: Yes Status: Acute At this juncture, I agree with psychiatry in that CPK levels are generally much higher with cases of NMS. However early on in the process CPK levels may Not be very impressive and may be only mildly to moderately elevated. Given that her CPK levels have declined significantly since starting the dantrolene, I feel that we should continue treatment with dantrolene until her CPK levels, and vital signs normalize. She is no longer febrile. I would like for psychiatry to make recommendations about whether or not neuroleptic therapy should be reinstituted at some time and at what point should it occur. She remains lethargic today however I suspect this might possibly be due to fentanyl sedation. The CSF Gram stain did not reveal evidence of organisms or white blood cells present. Cultures shows no growth at 24 hours. This leads me to suspect that the CSF abnormalities may be due to an aseptic meningitis. However for safekeeping I would recommend that we maintain the acyclovir until the PCR results are finalized. I will defer further management of antibiotic therapy to infectious diseases or internal medicine. Time spent today in the intensive care unit providing critical care for this patient was 40 minutes which included discussing the case with the attending and resident's, examining the patient and formulating a treatment plan. 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, unspecified Subjective Interval history: Chart was reviewed, patient was seen and examined. The events of yesterday evening are appreciated. Apparently yesterday evening the patient became acutely hypoxic, her oxygen saturations declined, and she was intubated. A mucous plug was pulled. She remains on the ventilator and is currently on fentanyl she was agitated somewhat. Consultations from psychiatry and infectious diseases are appreciated. CSF Gram stain revealed no organisms noted by blood cells. Culture reveals no growth. Patient this morning appears awake however is not responsive to verbal commands or tactile stimuli. This may perhaps be secondary to the fentanyl. The case was discussed with the ICU staff and the attending. WBC count remains essentially unchanged, however CPK levels have declined drastically. Kidney function remains stable. She is tolerating acyclovir without difficulty. PCR is pending. Objective - Constitutional Vitals: Temp Pulse Resp BP Pulse Ox 98.4 F 90 28 109/71 98 10/17/17 08:00 11/23/16 09:00 11/23/16 09:00 11/23/16 09:00 11/23/16 09:00 - Neurological Exam Additional comments: Cerebral functions-eyes are open, however she is not responsive. She does appear to be making eye contact at times, however she is not following simple commands, is not withdrawing to noxious stimuli. No grimacing. Cranial nerves-pupils are equal however sluggish to react to light. Doll's eyes are intact. No ptosis is identified. She is breathing above the ventilator. Motor-no involuntary movements identified, however no spontaneous movements identified. She does not follow commands she does not wiggle her toes, she does not withdraw to plantar stimulation. Deep tendon reflexes are diminished. No Babinski or clonus are present. Results - Laboratory Findings CBC and BMP: 11/23/16 04:01 11/23/16 04:01 Abnormal lab findings: Abnormal lab results WBC 15.8 K/mcL (4.3-11.1) H 11/23/16 04:01 RBC 3.81 M/mcL (3.82-4.97) L 11/23/16 04:01 Neutrophils # 10.8 K/mcL (1.6-8.9) H 11/23/16 04:01 PT 13.4 Seconds (9.4-12.1) H 11/22/16 07:34 ABG pO2 105 mmHg (85-104) H 11/23/16 04:17 ABG Total CO2 28 mEq/L (20-26) H 11/23/16 04:17 Potassium 3.0 mEq/L (3.5-4.5) L 11/23/16 04:01 Chloride 111 mEq/L (98-109) H 11/23/16 04:01 BUN 30 mg/dL (7-20) H 11/23/16 04:01 Est GFR (Non-Af Amer) 57 (> 60) L 11/23/16 04:01 BUN/Creatinine Ratio 32 (6-26) H 11/23/16 04:01 Glucose 223 mg/dL (70-99) H 11/23/16 04:01 POC Glucose 263 (58-89) H 11/23/16 05:07 Calculated Osmolality 309 (280-300) H 11/23/16 04:01 Calcium 8.4 mg/dL (8.6-10.8) L 11/23/16 04:01 AST 43 Units/L (5-34) H 11/22/16 03:53 ALT 66 Units/L (0-55) H 11/22/16 03:53 Creatine Kinase 173 Units/L (29-168) H 11/23/16 04:01 Serum Total Protein 5.6 g/dL (6.0-8.3) L 11/21/16 09:44 Albumin 2.7 g/dL (3.5-5.0) L 11/21/16 09:44 Albumin/Globulin Ratio 0.9 (1.1-2.2) L 11/21/16 09:44 CSF RBC 0.042 M/mcL (0.000-0.002) H 11/22/16 11:49 CSF Tot Nucleated Cells 60 TNC/mcL (0-5) H* 11/22/16 11:49 CSF Glucose 151 mg/dL (40-70) H 11/22/16 11:49 CSF Total Protein 224 mg/dL (15-45) H 11/22/16 11:49 [place] < 0.1 mEq/L (0.6-1.2) L 11/21/16 14:22 Consult Discharge Plan - Plan Referrals: Ludwin Mcdonnell MD [Primary Care Provider] -
--- NOTE | 2016-11-23 11:29 | Pulmonology Consult Note ---
<Jze Ballard - Last Filed: 11/23/16 13:21> Date of Encounter: 11/23/16 Time of Encounter: 09:00 Assessment and Plan (1) Acute respiratory failure with hypoxia Current Visit: Yes Status: Acute Initially secondary to mucus plugging Patient ventilated and breathing above the vent With decreased sedation respiratory rate increases into the 30s Saturating high 90s Plan is to extubate after son arrives Patient has been experiencing long-term decline in functioning Patient's living will and POA indicate that the patient would not want to undergo sustained efforts, especially if she will be unlikely to return to baseline Ongoing discussion with family/POA regarding exact therapies to be discontinued , e.g. dantrolene, antibiotics, etc Code status changed from FULL CODE to DNR-CCA with plan to change to COMFORT CARE (2) Dementia Current Visit: Yes Status: Acute There has been intermediate frame tender decline in her mental status, while she is also acutely delirious Qualifiers: Dementia type: unspecified type Dementia behavioral disturbance: without behavioral disturbance Qualified Code(s): F03.90 - Unspecified dementia without behavioral disturbance (3) Delirium Current Visit: Yes Status: Acute Acute delirium on chronic dementia Likely multifactorial, including UTI/sepsis, possible aseptic meningitis, possible NMS In addition to plans listed elsewhere, discontinuing nortriptyline per psychiatry recommendations (4) Neuroleptic malignant syndrome Current Visit: Yes Status: Suspected CK decreased from over 525 to 173 since starting dantrolene Current plans are for withdrawal of care per her living will and POA (5) Sepsis Current Visit: Yes Status: Acute UTI as likely source Currently afebrile HR max 101 since last night, RR > 20 on vent Not requiring BP support Currently on Zosyn Qualifiers: Sepsis type: sepsis due to unspecified organism Qualified Code(s): A41.9 - Sepsis, unspecified organism (6) Aseptic meningitis Current Visit: Yes Status: Suspected CSF cultures continue to be negative On acyclovir (7) UTI (urinary tract infection) Current Visit: Yes Status: Acute Mildly elevated but stable WBC count, afebrile Started on zosyn this morning Qualifiers: Urinary tract infection type: acute cystitis Hematuria presence: without hematuria Qualified Code(s): N30.00 - Acute cystitis without hematuria (8) Hypertension Current Visit: No Status: Chronic Holding home medications due to hypotension Qualifiers: Hypertension type: essential hypertension Qualified Code(s): I10 - Essential (primary) hypertension (9) CHF (congestive heart failure) Current Visit: No Status: Chronic Limit fluid administration Qualifiers: Congestive heart failure type: unspecified congestive heart failure type Congestive heart failure chronicity: chronic Qualified Code(s): I50.9 - Heart failure, unspecified (10) COPD (chronic obstructive pulmonary disease) Current Visit: No Status: Chronic Stable on ventilator Qualifiers: COPD type: unspecified COPD Qualified Code(s): J44.9 - Chronic obstructive pulmonary disease, unspecified (11) Diabetes Current Visit: No Status: Chronic Not well controlled increased Sliding scale from low dose to medium dose Qualifiers: Diabetes mellitus type: type 2 Diabetes mellitus complication status: without complication Diabetes mellitus intermediate frame tender insulin use: with detention use Qualified Code(s): E11.9 - Type 2 diabetes mellitus without complications ; Z79.4 - intermediate teacher (current) use of insulin; Z79.4 - assisted (current) use of insulin; Z79.4 - intermediate teacher (current) use of insulin; Z79.4 - intermediate teacher ( current) use of insulin (12) DVT prophylaxis Current Visit: Yes Status: Acute Heparin subq History of Present Illness Consult date: 11/23/16 Reason for consult: other (Respiratory Failure) Chief complaint: Altered Mental Status History of present illness: Sangita Dejesus is a 76 yo female with baseline dementia who presented with altered mental status on 11/19/16. There was initially concern for CVA on CT, but MRI showed no infarct. Yesterday evening, the patient developed rapidly worsening hypoxia with SpO2 into the mid 60s. Rapid response was called and the patient was intubated quickly. There are numerous possible causes for her altered mental status, including neuroleptic malignant syndrome, UTI, aseptic meningitis, polypharmacy, or some combination thereof. The patient's past medical history is significant for, atrial fibrillation, asthma, CHF, cardiomyopathy, COPD, DM type II, GERD, HLD, HTN, and liver disease. She was being treated for UTI with bactrim. Past Med Surg Social Fam HX - Past Medical History Medical history: arthritis, asthma, atrial fibrillation, cardiomyopathy, CHF, COPD, dementia, diabetes, GERD, hyperlipidemia, hypertension, liver disease, osteoporosis Psychiatric history: other - Social History Smoking Status: Former smoker Smokeless Tobacco Status: No Alcohol use: none Drug use: none Medications and Allergies Acetaminophen [Tylenol] 650 mg PO Q6HR PRN 11/19/16 [History] Albuterol Sulfate [Albuterol Inhaler] 1 puff IH Q4HR PRN 11/19/16 [History] Ascorbate Calcium [Vitamin C] 500 mg PO DAILY 11/19/16 [History] Citalopram [CeleXA] 10 mg PO DAILY 11/19/16 [History] Divalproex (12 HR) [Depakote (12 HR)] 1,000 mg PO DAILY 11/19/16 [History] Docusate [Colace] 100 mg PO BID 11/19/16 [History] Gabapentin [Neurontin] 300 mg PO BID 11/19/16 [History] Glimepiride [Amaryl] 2 mg PO 0800 11/19/16 [History] Haloperidol [Haldol] 5 mg PO TID 11/19/16 [History] Insulin ASPART [NovoLOG] 0 - 12 unit SQ TID PRN 11/19/16 [History] Insulin Glargine [Lantus] 30 unit SQ HS 11/19/16 [History] Iron,Carbonyl [Feosol] 325 mg PO QAM 11/19/16 [History] Lisinopril [Zestril] 10 mg PO DAILY 11/19/16 [History] [place] Carbonate 300 mg PO DAILY 11/19/16 [History] Metoclopramide [Reglan] 10 mg PO TID 11/19/16 [History] Multivitamin-Min/Iron/FA/Vit K [Multi-Day Plus Minerals Tablet] 1 each PO DAILY 11/19/16 [History] Naproxen [Naprosyn] 500 mg PO Q12H PRN 11/19/16 [History] Nortriptyline [Pamelor] 25 mg PO HS 11/19/16 [History] Omeprazole [PriLOSEC] 20 mg PO DAILY 11/19/16 [History] Ondansetron HCl [Zofran] 4 mg PO Q8H PRN 11/19/16 [History] Polyethylene Glycol [Polyox Wsr-301] 17 gm MC BID 11/19/16 [History] Pravastatin Sodium 10 mg PO DAILY 11/19/16 [History] Sodium Chloride 1,000 mg PO BID 11/19/16 [History] Zolpidem [Ambien] 5 mg PO HS 11/19/16 [History] metFORMIN [Glucophage] 1,000 mg PO BIDWM 11/19/16 [History] traZODone [TraZODone] 100 mg PO HS 11/19/16 [History] 3 Allergy/AdvReac Type Severity Reaction Status Date / Time codeine Allergy Vomiting Verified 12/27/15 10:50 iodine Allergy See Verified 11/19/16 09:05 Comments propoxyphene [From Darvon] Allergy Vomiting Verified 11/19/16 09:05 ROS unobtainable: due to endotracheal tube, due to mental status All Systems: A 10-system review of systems was performed and is negative for pertinent findings except as documented above in the HPI. Physical Examination Vital Signs: Vital Signs, Last 4 Hours Temp Pulse Resp BP Pulse Ox 11/23/16 10:00 71 26 122/82 96 11/23/16 09:00 90 28 109/71 98 11/23/16 08:10 28 96 11/23/16 08:00 98.4 F 75 29 124/76 94 11/23/16 07:36 98.4 F 11/23/16 07:00 81 29 111/67 99 General appearance: no acute distress, lethargic Eyes: nonicteric Effort: mildly labored (increased when sedation is reduced) Inspection: normal Auscultation: bilateral: diminished breath sounds Cardiovascular: regular rate and rhythm Gastrointestinal: soft, non-distended Extremities: pulses normal, edema (b/l UEs, symmetrical) Musculoskeletal: no deformities other (follows some commands with decreased sedation) Ventilator Settings Ventilator Settings: Ventilator Settings, Last 8 Hours Ventilator Mode A/C Ventilator Mode A/C Ventilator Mode A/C Ventilator Mode A/C Ventilator Mode CPAP Ventilator Mode A/C Ventilator Mode A/C Ventilator Mode A/C Ventilator Mode A/C Ventilator Mode A/C Ventilator Mode A/C Ventilator Mode A/C Ventilator Tidal Volume 350 Setting Ventilator Tidal Volume 350 Setting Ventilator Tidal Volume 350 Setting Ventilator Tidal Volume 350 Setting Ventilator Tidal Volume 380 Setting Ventilator Tidal Volume 380 Setting Ventilator Tidal Volume 380 Setting Ventilator Tidal Volume 380 Setting Ventilator Tidal Volume 380 Setting Ventilator Tidal Volume 380 Setting Ventilator Tidal Volume 380 Setting Ventilator Respiratory Rate 16 Setting Ventilator Respiratory Rate 16 Setting Ventilator Respiratory Rate 16 Setting Ventilator Respiratory Rate 16 Setting Ventilator Respiratory Rate 18 Setting Ventilator Respiratory Rate 18 Setting Ventilator Respiratory Rate 18 Setting Ventilator Respiratory Rate 18 Setting Ventilator Respiratory Rate 18 Setting Ventilator Respiratory Rate 18 Setting Ventilator Respiratory Rate 18 Setting Actual Respiratory Rate 26 Actual Respiratory Rate 28 Actual Respiratory Rate 28 Actual Respiratory Rate 29 Actual Respiratory Rate 29 Actual Respiratory Rate 24 Actual Respiratory Rate 23 Actual Respiratory Rate 21 Actual Respiratory Rate 21 Actual Respiratory Rate 21 Actual Respiratory Rate 19 Positive End Expiratory 5 Pressure Positive End Expiratory 5 Pressure Positive End Expiratory 5 Pressure Positive End Expiratory 5 Pressure Positive End Expiratory 5 Pressure Positive End Expiratory 5 Pressure Positive End Expiratory 5 Pressure Positive End Expiratory 5 Pressure Positive End Expiratory 5 Pressure Positive End Expiratory 5 Pressure Positive End Expiratory 5 Pressure Positive End Expiratory 5 Pressure Peak Inspiratory Airway 14 Pressure Peak Inspiratory Airway 13 Pressure Peak Inspiratory Airway 15 Pressure Peak Inspiratory Airway 18 Pressure Peak Inspiratory Airway 15 Pressure Peak Inspiratory Airway 21 Pressure Peak Inspiratory Airway 20 Pressure Peak Inspiratory Airway 22 Pressure Peak Inspiratory Airway 22 Pressure Peak Inspiratory Airway 22 Pressure Peak Inspiratory Airway 22 Pressure Results - Laboratory Findings CBC and BMP: 11/23/16 04:01 11/23/16 04:01 ABG ABG pH 7.43 pH Units (7.32-7.45) 11/23/16 04:17 ABG pCO2 40 mmHg (35-45) 11/23/16 04:17 ABG pO2 105 mmHg (85-104) H 11/23/16 04:17 ABG O2 Saturation 98 % (95-98) 11/23/16 04:17 PT/INR, D-dimer PT 13.4 Seconds (9.4-12.1) H 11/22/16 07:34 Abnormal lab findings: Abnormal lab results WBC 15.8 K/mcL (4.3-11.1) H 11/23/16 04:01 RBC 3.81 M/mcL (3.82-4.97) L 11/23/16 04:01 Neutrophils # 10.8 K/mcL (1.6-8.9) H 11/23/16 04:01 PT 13.4 Seconds (9.4-12.1) H 11/22/16 07:34 ABG pO2 105 mmHg (85-104) H 11/23/16 04:17 ABG Total CO2 28 mEq/L (20-26) H 11/23/16 04:17 Potassium 3.0 mEq/L (3.5-4.5) L 11/23/16 04:01 Chloride 111 mEq/L (98-109) H 11/23/16 04:01 BUN 30 mg/dL (7-20) H 11/23/16 04:01 Est GFR (Non-Af Amer) 57 (> 60) L 11/23/16 04:01 BUN/Creatinine Ratio 32 (6-26) H 11/23/16 04:01 Glucose 223 mg/dL (70-99) H 11/23/16 04:01 POC Glucose 263 (58-89) H 11/23/16 05:07 Calculated Osmolality 309 (280-300) H 11/23/16 04:01 Calcium 8.4 mg/dL (8.6-10.8) L 11/23/16 04:01 AST 43 Units/L (5-34) H 11/22/16 03:53 ALT 66 Units/L (0-55) H 11/22/16 03:53 Creatine Kinase 173 Units/L (29-168) H 11/23/16 04:01 Serum Total Protein 5.6 g/dL (6.0-8.3) L 11/21/16 09:44 Albumin 2.7 g/dL (3.5-5.0) L 11/21/16 09:44 Albumin/Globulin Ratio 0.9 (1.1-2.2) L 11/21/16 09:44 CSF RBC 0.042 M/mcL (0.000-0.002) H 11/22/16 11:49 CSF Tot Nucleated Cells 60 TNC/mcL (0-5) H* 11/22/16 11:49 CSF Glucose 151 mg/dL (40-70) H 11/22/16 11:49 CSF Total Protein 224 mg/dL (15-45) H 11/22/16 11:49 [place] < 0.1 mEq/L (0.6-1.2) L 11/21/16 14:22 - Microbiology Findings Microbiology Findings: Microbiology, Last 48 Hours 11/22/16 11:49 CSF Culture - Preliminary Cerebral Spinal Fluid 11/22/16 20:07 Sputum Culture - Final Sputum - Diagnostic Findings Chest x-ray: report reviewed, image reviewed Additional studies: Reviewed report and images for MRI and CT head - Clinical Findings Intake & Output: Intake & Output 11/22/16 11/23/16 11/23/16 23:59 07:59 15:59 Intake Total 490 / 490 730 / 730 1501.75 / 1501.75 Output Total 125 / 125 400 / 400 Balance 365 / 365 330 / 330 1501.75 / 1501.75 Consult Discharge Plan - Plan Referrals: Ludwin Mcdonnell MD [Primary Care Provider] - <ZbigniewIram palmer - Last Filed: 11/23/16 16:02> Date of Encounter: 11/23/16 All Systems: A 10-system review of systems was performed and is negative for pertinent findings except as documented above in the HPI. Physical Examination Vital Signs: Vital Signs, Last 4 Hours Temp Pulse Resp BP Pulse Ox 11/23/16 14:00 80 23 98 11/23/16 13:34 25 98 11/23/16 13:19 77 22 158/86 97 11/23/16 13:00 79 25 123/67 98 11/23/16 12:00 77 22 158/86 97 11/23/16 11:35 24 97 11/23/16 11:00 98.7 F 90 24 165/84 97 Ventilator Settings Ventilator Settings: Ventilator Settings, Last 8 Hours Ventilator Mode A/C Ventilator Mode A/C Ventilator Mode A/C Ventilator Mode A/C Ventilator Mode A/C Ventilator Mode A/C Ventilator Mode A/C Ventilator Mode A/C Ventilator Mode A/C Ventilator Mode A/C Ventilator Mode CPAP Ventilator Tidal Volume 350 Setting Ventilator Tidal Volume 350 Setting Ventilator Tidal Volume 350 Setting Ventilator Tidal Volume 350 Setting Ventilator Tidal Volume 350 Setting Ventilator Tidal Volume 350 Setting Ventilator Tidal Volume 350 Setting Ventilator Tidal Volume 350 Setting Ventilator Tidal Volume 350 Setting Ventilator Tidal Volume 350 Setting Ventilator Respiratory Rate 16 Setting Ventilator Respiratory Rate 16 Setting Ventilator Respiratory Rate 16 Setting Ventilator Respiratory Rate 16 Setting Ventilator Respiratory Rate 16 Setting Ventilator Respiratory Rate 16 Setting Ventilator Respiratory Rate 16 Setting Ventilator Respiratory Rate 16 Setting Ventilator Respiratory Rate 16 Setting Ventilator Respiratory Rate 16 Setting Actual Respiratory Rate 23 Actual Respiratory Rate 24 Actual Respiratory Rate 25 Actual Respiratory Rate 22 Actual Respiratory Rate 33 Actual Respiratory Rate 26 Actual Respiratory Rate 26 Actual Respiratory Rate 28 Actual Respiratory Rate 28 Actual Respiratory Rate 29 Actual Respiratory Rate 29 Positive End Expiratory 5 Pressure Positive End Expiratory 5 Pressure Positive End Expiratory 5 Pressure Positive End Expiratory 5 Pressure Positive End Expiratory 5 Pressure Positive End Expiratory 5 Pressure Positive End Expiratory 5 Pressure Positive End Expiratory 5 Pressure Positive End Expiratory 5 Pressure Positive End Expiratory 5 Pressure Positive End Expiratory 5 Pressure Peak Inspiratory Airway 15 Pressure Peak Inspiratory Airway 12 Pressure Peak Inspiratory Airway 14 Pressure Peak Inspiratory Airway 17 Pressure Peak Inspiratory Airway 13 Pressure Peak Inspiratory Airway 17 Pressure Peak Inspiratory Airway 14 Pressure Peak Inspiratory Airway 13 Pressure Peak Inspiratory Airway 15 Pressure Peak Inspiratory Airway 18 Pressure Peak Inspiratory Airway 15 Pressure Results - Laboratory Findings CBC and BMP: 11/23/16 04:01 11/23/16 04:01 ABG ABG pH 7.43 pH Units (7.32-7.45) 11/23/16 04:17 ABG pCO2 40 mmHg (35-45) 11/23/16 04:17 ABG pO2 105 mmHg (85-104) H 11/23/16 04:17 ABG O2 Saturation 98 % (95-98) 11/23/16 04:17 PT/INR, D-dimer PT 13.4 Seconds (9.4-12.1) H 11/22/16 07:34 Abnormal lab findings: Abnormal lab results WBC 15.8 K/mcL (4.3-11.1) H 11/23/16 04:01 RBC 3.81 M/mcL (3.82-4.97) L 11/23/16 04:01 Neutrophils # 10.8 K/mcL (1.6-8.9) H 11/23/16 04:01 PT 13.4 Seconds (9.4-12.1) H 11/22/16 07:34 ABG pO2 105 mmHg (85-104) H 11/23/16 04:17 ABG Total CO2 28 mEq/L (20-26) H 11/23/16 04:17 Potassium 3.0 mEq/L (3.5-4.5) L 11/23/16 04:01 Chloride 111 mEq/L (98-109) H 11/23/16 04:01 BUN 30 mg/dL (7-20) H 11/23/16 04:01 Est GFR (Non-Af Amer) 57 (> 60) L 11/23/16 04:01 BUN/Creatinine Ratio 32 (6-26) H 11/23/16 04:01 Glucose 223 mg/dL (70-99) H 11/23/16 04:01 POC Glucose 261 (58-89) H 11/23/16 11:19 Calculated Osmolality 309 (280-300) H 11/23/16 04:01 Calcium 8.4 mg/dL (8.6-10.8) L 11/23/16 04:01 AST 43 Units/L (5-34) H 11/22/16 03:53 ALT 66 Units/L (0-55) H 11/22/16 03:53 Creatine Kinase 173 Units/L (29-168) H 11/23/16 04:01 Serum Total Protein 5.6 g/dL (6.0-8.3) L 11/21/16 09:44 Albumin 2.7 g/dL (3.5-5.0) L 11/21/16 09:44 Albumin/Globulin Ratio 0.9 (1.1-2.2) L 11/21/16 09:44 CSF RBC 0.042 M/mcL (0.000-0.002) H 11/22/16 11:49 CSF Tot Nucleated Cells 60 TNC/mcL (0-5) H* 11/22/16 11:49 CSF Glucose 151 mg/dL (40-70) H 11/22/16 11:49 CSF Total Protein 224 mg/dL (15-45) H 11/22/16 11:49 [place] < 0.1 mEq/L (0.6-1.2) L 11/21/16 14:22 - Microbiology Findings Microbiology Findings: Microbiology, Last 48 Hours 11/22/16 11:49 CSF Culture - Preliminary Cerebral Spinal Fluid 11/22/16 20:07 Sputum Culture - Final Sputum - Clinical Findings Intake & Output: Intake & Output 11/22/16 11/23/16 11/23/16 23:59 07:59 15:59 Intake Total 490 / 490 730 / 730 1601.75 / 1601.75 Output Total 125 / 125 400 / 400 200 / 200 Balance 365 / 365 330 / 330 1401.75 / 1401.75 - Attending Attestation I saw the patient with the resident agree with History and Physical exam findings. Labs and Radiology were reviewed Ventilator data were reviewed TONGUE TRIMMER: Patient arousable to verbal stimuli mostly she was able to woken up with painful stimuli after the fentanyl is stopped patient is following commands . Differential diagnosis NMS Vs Aseptic meningitis Vs UTI Vs Catatonia . Patient has poor baseline neurological status dementia living in the custodial for past six years NECK : No JVD appreciated Pulmonary : Patient had an aspiration event which led to sever V/Q mismatch acute hypoxic respiratory failure on Vent adjusted tidal volume to low tidal volume strategy Cardiac : Hemodynamically stable not on any vasopressors Nutrition/GI: Patient is on trophic tube feeding Renal : Renal labs reviewed Heme onc : No acute issues ID: aseptic meningitis on Acyclovir , Zosyn for UTI and cover for aspiration. Musculo skeletal / skin issues : no acute issues Disposition : According to patient family she doesnt want any aggressive measures if there is not much of a meaningful recovery. Counseled them we should honor our wishes Code status: Code status was changed to DNRCCA Family/POA:Brother Spent 35 minutes of critical care excluding time spent with Family
--- NOTE | 2016-11-23 13:44 | Infectious Disease Progress No ---
Date of Encounter: 11/23/16 Time of Encounter: 13:42 - Assessment and Plan (1) Sepsis Current Visit: Yes Status: Acute Severe sepsis: The patient had four SIRS criteria plus acute encephalopathy on admission. Etiology unclear: UTI vs. aseptic meningitis. The patient continues to have fevers, tachycardia, and tachypnea. Her mental status is difficult to assess due to sedation. WBC is stable. Blood cultures drawn 11/19/16 are NGTD. Qualifiers: Sepsis type: sepsis due to unspecified organism Qualified Code(s): A41.9 - Sepsis, unspecified organism (2) UTI (urinary tract infection) Current Visit: Yes Status: Acute Causative organism Proteus mirabilis. Continue Zosyn 3.375 grams IV Q8H. Duration of treatment depends on the clinical picture. Monitor renal function and for drug toxicity and dose-adjust antibiotics. Qualifiers: Urinary tract infection type: acute cystitis Hematuria presence: without hematuria Qualified Code(s): N30.00 - Acute cystitis without hematuria (3) Aseptic meningitis Current Visit: Yes Status: Acute Etiology unclear. Status post LP with pleocytosis (WBC 64). Gram stain and culture negative. Likely viral. CSF HSV PCR pending. Continue Acyclovir for now until HSV PCR comes back. Neurology consulted and following. Appreciate recommendations. (4) Altered mental state Current Visit: Yes Status: Acute Etiology unclear, but concern for NMS. Neurology consulted and following. Appears somewhat improved during my exam based on what nursing is telling me. Qualifiers: Altered mental status type: stupor Qualified Code(s): R40.1 - Stupor (5) Acute respiratory failure with hypoxia Current Visit: Yes Status: Acute Likely secondary to aspiration and mucous plugging. Required emergent intubation yesterday. Continue vent support per the pulmonology team. (6) Parkinsonism Current Visit: Yes Status: Acute Neurology notes reviewed. Concern for NMS since the patient's CPK and mental status has improved since starting Dantrolene. Further management per neurology. 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, unspecified (7) Delirium Current Visit: Yes Status: Acute (8) CHF (congestive heart failure) Current Visit: No Status: Chronic Qualifiers: Congestive heart failure type: unspecified congestive heart failure type Congestive heart failure chronicity: chronic Qualified Code(s): I50.9 - Heart failure, unspecified (9) COPD (chronic obstructive pulmonary disease) Current Visit: No Status: Chronic Qualifiers: COPD type: unspecified COPD Qualified Code(s): J44.9 - Chronic obstructive pulmonary disease, unspecified (10) Diabetes Current Visit: No Status: Chronic Qualifiers: Diabetes mellitus type: type 2 Diabetes mellitus complication status: without complication Diabetes mellitus termite control technician insulin use: with termite control technician use Qualified Code(s): E11.9 - Type 2 diabetes mellitus without complications ; Z79.4 - care home (current) use of insulin; Z79.4 - care home (current) use of insulin; Z79.4 - care home (current) use of insulin; Z79.4 - equipment operator intermodal yard ( current) use of insulin (11) Hypertension Current Visit: No Status: Chronic Qualifiers: Hypertension type: essential hypertension Qualified Code(s): I10 - Essential (primary) hypertension (12) Dementia Current Visit: Yes Status: Chronic Qualifiers: Dementia type: unspecified type Dementia behavioral disturbance: without behavioral disturbance Qualified Code(s): F03.90 - Unspecified dementia without behavioral disturbance - Subjective Interval history: Patient seen and examined. Acute events of yesterday evening noted. Patient developed hypoxia with concern for aspiration and mucous plugging and required emergent intubation. Patient seen in the ICU. Currently intubated and sedated. Does open eyes to verbal stimuli, squeeze my hands on command, wiggle toes on command, and nod head "yes" when asked if in pain. Infect Dis PN-Objective Data - Labs CBC & Chem 7: 11/23/16 04:01 11/23/16 04:01 Labs: Laboratory Results - last 24 hr 11/22/16 11/22/16 11/22/16 11:49 17:50 17:52 WBC RBC Hgb Hct MCV MCH MCHC RDW Plt Count MPV Immature Gran % Seg Neutrophils % Lymphocytes % Monocytes % Eosinophils % Basophils % Neutrophils # Lymphocytes # Monocytes # Eosinophils # Basophils # Sample Site ABG pH 7.41 ABG pCO2 44 ABG pO2 27 L* ABG HCO3 28 H ABG Total CO2 29 H ABG O2 Saturation 50 L ABG Base Excess 3 Matt Test Respiration Rate O2 Delivery Device Blood Gas Modality Inspired O2 Tidal Volume PEEP Sodium Potassium Chloride Carbon Dioxide BUN Creatinine Est GFR ( Amer) Est GFR (Non-Af Amer) BUN/Creatinine Ratio Glucose POC Glucose 200 H Calculated Osmolality Calcium Magnesium Creatine Kinase CSF Volume 4.0 CSF Appearance Bloody CSF Color Red CSF Seg Neutrophils 93.0 CSF Band Neutrophils % Test Not Performed CSF Lymphocytes % 7.0 CSF Monocytes % Test Not Performed CSF Eosinophils % Test Not Performed CSF Basophils % Test Not Performed CSF Other Cells % Test Not Performed Person Notif of Crit CHERYL BRIE/RESP 11/22/16 11/22/16 11/22/16 17:58 18:37 22:06 WBC RBC Hgb Hct MCV MCH MCHC RDW Plt Count MPV Immature Gran % Seg Neutrophils % Lymphocytes % Monocytes % Eosinophils % Basophils % Neutrophils # Lymphocytes # Monocytes # Eosinophils # Basophils # Sample Site R Radial L Radial ABG pH 7.43 7.45 ABG pCO2 42 38 ABG pO2 147 H D 176 H ABG HCO3 27 26 ABG Total CO2 29 H 27 H ABG O2 Saturation 99 H 100 H ABG Base Excess 3 2 Matt Test Positive N/A Respiration Rate 14 18 O2 Delivery Device Adult Vent Adult Vent Blood Gas Modality ASSIST CONTROL ASSIST CONTROL Inspired O2 100.0 50.0 Tidal Volume 550 380 PEEP 5 5 Sodium Potassium Chloride Carbon Dioxide BUN Creatinine Est GFR ( Amer) Est GFR (Non-Af Amer) BUN/Creatinine Ratio Glucose POC Glucose 208 H Calculated Osmolality Calcium Magnesium Creatine Kinase CSF Volume CSF Appearance CSF Color CSF Seg Neutrophils CSF Band Neutrophils % CSF Lymphocytes % CSF Monocytes % CSF Eosinophils % CSF Basophils % CSF Other Cells % Person Notif of Crit 11/22/16 11/23/16 11/23/16 22:51 04:01 04:01 WBC 15.8 H RBC 3.81 L Hgb 11.6 D Hct 36.3 MCV 95.3 MCH 30.4 MCHC 32.0 RDW 13.1 Plt Count 183 MPV 11.3 Immature Gran % 0.6 Seg Neutrophils % 68.5 Lymphocytes % 22.2 Monocytes % 7.5 Eosinophils % 0.9 Basophils % 0.3 Neutrophils # 10.8 H Lymphocytes # 3.5 Monocytes # 1.2 Eosinophils # 0.1 Basophils # 0.1 Sample Site ABG pH ABG pCO2 ABG pO2 ABG HCO3 ABG Total CO2 ABG O2 Saturation ABG Base Excess Matt Test Respiration Rate O2 Delivery Device Blood Gas Modality Inspired O2 Tidal Volume PEEP Sodium 143 Potassium 3.0 L Chloride 111 H Carbon Dioxide 24 BUN 30 H Creatinine 0.95 Est GFR ( Amer) > 60 Est GFR (Non-Af Amer) 57 L BUN/Creatinine Ratio 32 H Glucose 223 H POC Glucose 255 H Calculated Osmolality 309 H Calcium 8.4 L Magnesium 2.0 Creatine Kinase 173 H CSF Volume CSF Appearance CSF Color CSF Seg Neutrophils CSF Band Neutrophils % CSF Lymphocytes % CSF Monocytes % CSF Eosinophils % CSF Basophils % CSF Other Cells % Person Notif of Crit 11/23/16 11/23/16 11/23/16 04:17 05:07 11:19 WBC RBC Hgb Hct MCV MCH MCHC RDW Plt Count MPV Immature Gran % Seg Neutrophils % Lymphocytes % Monocytes % Eosinophils % Basophils % Neutrophils # Lymphocytes # Monocytes # Eosinophils # Basophils # Sample Site ABG pH 7.43 ABG pCO2 40 ABG pO2 105 H ABG HCO3 26 ABG Total CO2 28 H ABG O2 Saturation 98 ABG Base Excess 2 Matt Test Respiration Rate O2 Delivery Device Blood Gas Modality ASSIST CONTROL Inspired O2 Tidal Volume PEEP Sodium Potassium Chloride Carbon Dioxide BUN Creatinine Est GFR ( Amer) Est GFR (Non-Af Amer) BUN/Creatinine Ratio Glucose POC Glucose 263 H 261 H Calculated Osmolality Calcium Magnesium Creatine Kinase CSF Volume CSF Appearance CSF Color CSF Seg Neutrophils CSF Band Neutrophils % CSF Lymphocytes % CSF Monocytes % CSF Eosinophils % CSF Basophils % CSF Other Cells % Person Notif of Crit Cultures: Cultures 11/22/16 11:49 CSF Culture - Preliminary Cerebral Spinal Fluid 11/22/16 20:07 Sputum Culture - Final Sputum Serology 11/22/16 Range/Units 11:49 CSF Volume 4.0 mL CSF Appearance Bloody (Clear) CSF Color Red (Colorless) CSF RBC 0.042 H (0.000 - 0.002) M/mcL CSF Tot Nucleated Cells 60 H* (0-5) TNC/mcL CSF Seg Neutrophils 93.0 % CSF Band Neutrophils % Test Not Performed CSF Lymphocytes % 7.0 % CSF Monocytes % Test Not Performed CSF Eosinophils % Test Not Performed CSF Basophils % Test Not Performed CSF Other Cells % Test Not Performed CSF Glucose 151 H (40-70) mg/dL CSF Xanth Comm Not Observed (Not Observe) CSF Total Protein 224 H (15-45) mg/dL - Impressions Impressions Lumbar Puncture Fluoroscopy 11/22/16 07:22 IMPRESSION: Successful fluoroscopic-guided lumbar puncture. Hemorrhagic CSF was encountered, which is likely related to traumatic tap. D/ / 11/22/2016 12:48:38 Burt Enriquez MD / earnold Interpreting Provider: Burt Enriquez MD Chest X-Ray 11/22/16 17:49 IMPRESSION: Stable cardiomegaly. Mild pulmonary vascular congestion. Asymmetric mild elevation of the right hemidiaphragm. Airspace opacity at the right mid to lower lung field, increased since the prior study, may be related to atelectasis, pneumonia or asymmetric pulmonary edema. D/ / Tomás Eldridge MD / Tomás Eldridge MD Interpreting Provider: Tomás Eldridge MD X-Ray 11/22/16 18:55 IMPRESSION: 1. Tip of the nasogastric tube is in the expected location, superimposed over the gastric antrum/the 1st portion the duodenum. D/ / Joseph Moore MD / Joseph Moore MD Interpreting Provider: Joseph Moore MD Chest X-Ray 11/23/16 07:00 IMPRESSION: Improved atelectasis at right lung base. Otherwise, no significant change. D/ / Amauri Fragoso / Amauri Fragoso Interpreting Provider: Amauri Fragoso Exam - Constitutional Vitals: Temp Pulse Resp BP Pulse Ox 98.4 F 77 25 158/86 98 11/23/16 08:00 11/23/16 13:19 11/23/16 13:34 11/23/16 13:19 11/23/16 13:34 General appearance: average body habitus, no acute distress, no febrile - Head Head exam: Present: atraumatic, normal inspection, normocephalic - Eye Eye exam: Present: normal appearance, PERRL Pupils: Present: normal accommodation - ENT ENT exam: Present: mucous membranes moist - Neck Neck exam: Present: normal inspection - Respiratory Respiratory exam: Present: CTAB. Absent: rales, respiratory distress, rhonchi, wheezes - Cardiovascular Cardiovascular exam: Present: RRR, +S1, +S2 - GI/Abdominal GI/Abdominal exam: Present: normal bowel sounds, soft. Absent: distended, tenderness Additional comments: Nicolas catheter noted to be draining clear yellow urine. OG tube to LWIS. - Extremities Exam Extremities exam: Present: normal inspection. Absent: joint swelling, pedal edema, tenderness - Neurological Exam Neurological exam: Present: altered, no focal deficits - Skin Skin exam: Present: dry, intact, normal color, warm Consult Discharge Plan - Plan Referrals: Ludwin Mcdonnell MD [Primary Care Provider] - - Attending Attestation I examined this patient and my medical decision-making was reviewed with the Resident Physician. I agree with the documented findings, disposition and treatment plan as described except to the extent set forth below.
[2016-11-23] MEDS ORDERED: Acyclovir 750 MG in D5% in Water 250 ML IVPB SCH (16:00)
[2016-11-24] MEDS: Lacri-Lube 3.5 GM TUBE BOTH EYES SCH ×3 (00:46→07:59)
[2016-11-24] MEDS: Piperacillin/Tazobactam 3.375 GM in D5% in Water (Mini-Bag+) 100 ML IVPB SCH ×2 (00:46→07:53)
[2016-11-24] MEDS: Insulin LISPRO 300 UNITS/3 ML VIAL SQ SCH ×2 (00:47→06:25)
[2016-11-24] MEDS: WATER FOR INJ IVPB SCH ×2 (02:24→08:45)
[2016-11-24] MEDS: DANTROLENE SODIUM IVPB SCH ×2 (02:24→08:45)
[2016-11-24] MEDS: *HR* Heparin 5,000 UNIT/ML VIAL SQ SCH (06:24)
[2016-11-24] MEDS ORDERED: Insulin LISPRO 300 UNITS/3 ML VIAL SQ SCH (07:23)
--- NOTE | 2016-11-24 07:28 | Pulmonology Progress Note ---
<Jez Ballard - Last Filed: 11/24/16 10:54> Date of Encounter: 11/24/16 Time of Encounter: 07:26 Assessment and Plan (1) Acute respiratory failure with hypoxia Current Visit: Yes Status: Acute Patient ventilated and breathing above vent Saturates well while sedated Plan for compassionate extubation today Patient has been experiencing long-term decline in functioning Patient's living will and POA indicate that the patient would not want to undergo sustained efforts, especially if she will be unlikely to return to baseline Patient to be seen by palliative today, appreciate any input Ongoing discussion with family/POA regarding exact therapies to be discontinued , e.g. dantrolene, antibiotics, etc Family has declined all further invasive testing, including lab draws Code status DNR-CCA with plan to change to COMFORT CARE (2) Dementia Current Visit: Yes Status: Chronic Acute delirium superimposed on chronic dementia Qualifiers: Dementia type: unspecified type Dementia behavioral disturbance: without behavioral disturbance Qualified Code(s): F03.90 - Unspecified dementia without behavioral disturbance (3) Delirium Current Visit: Yes Status: Acute Acute delirium superimposed on chronic dementia Likely multifactorial, including UTI/sepsis, possible aseptic meningitis, possible NMS (4) Neuroleptic malignant syndrome Current Visit: Yes Status: Acute Final doses of dantrolene today CK downtrending (5) Sepsis Current Visit: Yes Status: Acute UTI likely source Afebrile, HR max 84, RR max 24 Not requiring BP support Currently on Zosyn Qualifiers: Sepsis type: sepsis due to unspecified organism Qualified Code(s): A41.9 - Sepsis, unspecified organism (6) Aseptic meningitis Current Visit: Yes Status: Acute CSF culture from 11/22 remains negative On acyclovir at least until HSV PCR returns (7) UTI (urinary tract infection) Current Visit: Yes Status: Acute On zosyn Causative organism is proteus mirabilis Qualifiers: Urinary tract infection type: acute cystitis Hematuria presence: without hematuria Qualified Code(s): N30.00 - Acute cystitis without hematuria (8) Hypertension Current Visit: No Status: Chronic Holding home medications due to borderline hypotension Qualifiers: Hypertension type: essential hypertension Qualified Code(s): I10 - Essential (primary) hypertension (9) CHF (congestive heart failure) Current Visit: No Status: Chronic Limit fluid administration Qualifiers: Congestive heart failure type: unspecified congestive heart failure type Congestive heart failure chronicity: chronic Qualified Code(s): I50.9 - Heart failure, unspecified (10) COPD (chronic obstructive pulmonary disease) Current Visit: No Status: Chronic Stable on ventilator Qualifiers: COPD type: unspecified COPD Qualified Code(s): J44.9 - Chronic obstructive pulmonary disease, unspecified (11) Diabetes Current Visit: No Status: Chronic Glucose remains elevated into the highs 200s to low 300s Increased from medium to high dose sliding scale Qualifiers: Diabetes mellitus type: type 2 Diabetes mellitus complication status: without complication Diabetes mellitus superintendent terminal insulin use: with superintendent terminal use Qualified Code(s): E11.9 - Type 2 diabetes mellitus without complications ; Z79.4 - termite technician (current) use of insulin; Z79.4 - [facility] (current) use of insulin; Z79.4 - termite technician (current) use of insulin; Z79.4 - termite technician ( current) use of insulin (12) DVT prophylaxis Current Visit: Yes Status: Acute Heparin subq Subjective Principal diagnosis: Acute Respiratory Failure Interval history: No overnight events. No interval changes. Objective PUL Vital signs: Last Vital Signs Temp 98.5 F 11/24/16 07:25 Pulse 75 11/24/16 06:00 Resp 22 11/24/16 06:00 BP 98/53 11/24/16 06:00 Pulse Ox 98 11/24/16 06:00 General appearance: no acute distress, asleep Eyes: nonicteric Effort: other (ventilated, breathing above vent) Auscultation: bilateral: diminished breath sounds Cardiovascular: regular rate and rhythm Gastrointestinal: soft, non-tender, non-distended Extremities: edema (B/L arms) other (follows commands when sedation lessened) Ventilator Settings Ventilator Settings: Ventilator Settings, Last 8 Hours Ventilator Mode A/C Ventilator Mode A/C Ventilator Mode A/C Ventilator Mode A/C Ventilator Mode A/C Ventilator Mode A/C Ventilator Tidal Volume 350 Setting Ventilator Tidal Volume 350 Setting Ventilator Tidal Volume 350 Setting Ventilator Tidal Volume 350 Setting Ventilator Tidal Volume 350 Setting Ventilator Tidal Volume 350 Setting Ventilator Respiratory Rate 16 Setting Ventilator Respiratory Rate 16 Setting Ventilator Respiratory Rate 16 Setting Ventilator Respiratory Rate 16 Setting Ventilator Respiratory Rate 16 Setting Ventilator Respiratory Rate 16 Setting Actual Respiratory Rate 23 Actual Respiratory Rate 23 Actual Respiratory Rate 27 Actual Respiratory Rate 21 Positive End Expiratory 5 Pressure Positive End Expiratory 5 Pressure Positive End Expiratory 5 Pressure Positive End Expiratory 5 Pressure Positive End Expiratory 5 Pressure Positive End Expiratory 5 Pressure Peak Inspiratory Airway 15 Pressure Peak Inspiratory Airway 18 Pressure Peak Inspiratory Airway 17 Pressure Peak Inspiratory Airway 16 Pressure Results - Laboratory Findings CBC and BMP: 11/23/16 04:01 11/23/16 04:01 ABG ABG pH 7.43 pH Units (7.32-7.45) 11/23/16 04:17 ABG pCO2 40 mmHg (35-45) 11/23/16 04:17 ABG pO2 105 mmHg (85-104) H 11/23/16 04:17 ABG O2 Saturation 98 % (95-98) 11/23/16 04:17 PT/INR, D-dimer PT 13.4 Seconds (9.4-12.1) H 11/22/16 07:34 Abnormal lab findings: Abnormal lab results WBC 15.8 K/mcL (4.3-11.1) H 11/23/16 04:01 RBC 3.81 M/mcL (3.82-4.97) L 11/23/16 04:01 Neutrophils # 10.8 K/mcL (1.6-8.9) H 11/23/16 04:01 PT 13.4 Seconds (9.4-12.1) H 11/22/16 07:34 ABG pO2 105 mmHg (85-104) H 11/23/16 04:17 ABG Total CO2 28 mEq/L (20-26) H 11/23/16 04:17 Potassium 3.0 mEq/L (3.5-4.5) L 11/23/16 04:01 Chloride 111 mEq/L (98-109) H 11/23/16 04:01 BUN 30 mg/dL (7-20) H 11/23/16 04:01 Est GFR (Non-Af Amer) 57 (> 60) L 11/23/16 04:01 BUN/Creatinine Ratio 32 (6-26) H 11/23/16 04:01 Glucose 223 mg/dL (70-99) H 11/23/16 04:01 POC Glucose 296 (58-89) H 11/24/16 05:24 Calculated Osmolality 309 (280-300) H 11/23/16 04:01 Calcium 8.4 mg/dL (8.6-10.8) L 11/23/16 04:01 AST 43 Units/L (5-34) H 11/22/16 03:53 ALT 66 Units/L (0-55) H 11/22/16 03:53 Creatine Kinase 173 Units/L (29-168) H 11/23/16 04:01 Serum Total Protein 5.6 g/dL (6.0-8.3) L 11/21/16 09:44 Albumin 2.7 g/dL (3.5-5.0) L 11/21/16 09:44 Albumin/Globulin Ratio 0.9 (1.1-2.2) L 11/21/16 09:44 CSF RBC 0.042 M/mcL (0.000-0.002) H 11/22/16 11:49 CSF Tot Nucleated Cells 60 TNC/mcL (0-5) H* 11/22/16 11:49 CSF Glucose 151 mg/dL (40-70) H 11/22/16 11:49 CSF Total Protein 224 mg/dL (15-45) H 11/22/16 11:49 Lemay < 0.1 mEq/L (0.6-1.2) L 11/21/16 14:22 - Microbiology Findings Microbiology Findings: Microbiology, Last 48 Hours 11/22/16 21:04 Blood Culture - Preliminary Peripheral Venipuncture No growth. 11/22/16 21:04 Blood Culture - Preliminary Peripheral Venipuncture No growth. 11/22/16 11:49 CSF Culture - Preliminary Cerebral Spinal Fluid 11/23/16 14:00 Sputum Culture - Preliminary Sputum 11/22/16 20:07 Sputum Culture - Final Sputum - Diagnostic Findings U/S of Legs: report reviewed - Clinical Findings Intake & Output: Intake & Output 11/23/16 11/23/16 11/24/16 15:59 23:59 07:59 Intake Total 1841.75 / 1841.75 680 / 680 440 / 440 Output Total 200 / 200 650 / 650 250 / 250 Balance 1641.75 / 1641.75 30 / 30 190 / 190 Weight 75.865 kg Consult Discharge Plan - Plan Referrals: Ludwin Mcdonnell MD [Primary Care Provider] - <Iram Pool - Last Filed: 11/24/16 18:42> Date of Encounter: 11/24/16 Objective PUL Vital signs: Last Vital Signs Temp 98.5 F 11/24/16 07:25 Pulse 83 11/24/16 11:00 Resp 16 11/24/16 11:21 BP 124/66 11/24/16 11:21 Pulse Ox 99 11/24/16 13:18 Ventilator Settings Ventilator Settings: Ventilator Settings, Last 8 Hours Ventilator Mode A/C Ventilator Mode A/C Ventilator Tidal Volume 350 Setting Ventilator Tidal Volume 350 Setting Ventilator Respiratory Rate 16 Setting Ventilator Respiratory Rate 16 Setting Actual Respiratory Rate 25 Actual Respiratory Rate 22 Positive End Expiratory 5 Pressure Positive End Expiratory 5 Pressure Peak Inspiratory Airway 12 Pressure Peak Inspiratory Airway 15 Pressure Results - Laboratory Findings CBC and BMP: 11/23/16 04:01 11/23/16 04:01 ABG ABG pH 7.43 pH Units (7.32-7.45) 11/23/16 04:17 ABG pCO2 40 mmHg (35-45) 11/23/16 04:17 ABG pO2 105 mmHg (85-104) H 11/23/16 04:17 ABG O2 Saturation 98 % (95-98) 11/23/16 04:17 PT/INR, D-dimer PT 13.4 Seconds (9.4-12.1) H 11/22/16 07:34 Abnormal lab findings: Abnormal lab results WBC 15.8 K/mcL (4.3-11.1) H 11/23/16 04:01 RBC 3.81 M/mcL (3.82-4.97) L 11/23/16 04:01 Neutrophils # 10.8 K/mcL (1.6-8.9) H 11/23/16 04:01 PT 13.4 Seconds (9.4-12.1) H 11/22/16 07:34 ABG pO2 105 mmHg (85-104) H 11/23/16 04:17 ABG Total CO2 28 mEq/L (20-26) H 11/23/16 04:17 Potassium 3.0 mEq/L (3.5-4.5) L 11/23/16 04:01 Chloride 111 mEq/L (98-109) H 11/23/16 04:01 BUN 30 mg/dL (7-20) H 11/23/16 04:01 Est GFR (Non-Af Amer) 57 (> 60) L 11/23/16 04:01 BUN/Creatinine Ratio 32 (6-26) H 11/23/16 04:01 Glucose 223 mg/dL (70-99) H 11/23/16 04:01 POC Glucose 296 (58-89) H 11/24/16 05:24 Calculated Osmolality 309 (280-300) H 11/23/16 04:01 Calcium 8.4 mg/dL (8.6-10.8) L 11/23/16 04:01 AST 43 Units/L (5-34) H 11/22/16 03:53 ALT 66 Units/L (0-55) H 11/22/16 03:53 Creatine Kinase 173 Units/L (29-168) H 11/23/16 04:01 Serum Total Protein 5.6 g/dL (6.0-8.3) L 11/21/16 09:44 Albumin 2.7 g/dL (3.5-5.0) L 11/21/16 09:44 Albumin/Globulin Ratio 0.9 (1.1-2.2) L 11/21/16 09:44 CSF RBC 0.042 M/mcL (0.000-0.002) H 11/22/16 11:49 CSF Tot Nucleated Cells 60 TNC/mcL (0-5) H* 11/22/16 11:49 CSF Glucose 151 mg/dL (40-70) H 11/22/16 11:49 CSF Total Protein 224 mg/dL (15-45) H 11/22/16 11:49 Lemay < 0.1 mEq/L (0.6-1.2) L 11/21/16 14:22 - Microbiology Findings Microbiology Findings: Microbiology, Last 48 Hours 11/23/16 14:00 Sputum Culture - Preliminary Sputum 11/22/16 21:04 Blood Culture - Preliminary Peripheral Venipuncture No growth. 11/22/16 21:04 Blood Culture - Preliminary Peripheral Venipuncture No growth. 11/22/16 11:49 CSF Culture - Preliminary Cerebral Spinal Fluid 11/22/16 20:07 Sputum Culture - Final Sputum - Clinical Findings Intake & Output: Intake & Output 11/24/16 11/24/16 11/24/16 07:59 15:59 23:59 Intake Total 460 / 460 1101.7 / 1101.7 51.35 / 51.35 Output Total 250 / 250 Balance 210 / 210 1101.7 / 1101.7 51.35 / 51.35 Weight 75.865 kg - Attending Attestation I saw the patient with the resident agree with History and Physical exam findings. Labs and Radiology were reviewed Ventilator data were reviewed SWIMMING POOL SERVICEPERSON: Patient is sedated with propfol and fentanyl as patient was uncomfortable with ET and ventilator , no neuro exam cannot be done as patient is completely sedated as family is leaning to keep her patient comfortable NECK : No JVD appreciated Pulmonary : Patient had an aspiration event which led to sever V/Q mismatch acute hypoxic respiratory failure on Vent adjusted tidal volume to low tidal volume strategy,failed SBT yesterday , according to patient wishes , patient family decided on compassionate extubation Cardiac : Hemodynamically stable Nutrition/GI: Patient is on trophic tube feeding Renal : Renal labs reviewed Heme onc : No acute issues ID: aseptic meningitis on Acyclovir , Zosyn for UTI and cover for aspiration. as we are concentrating on comfort measures will stop all medications Musculo skeletal / skin issues : no acute issues Disposition : According to patient family she doesnt want any aggressive measures like being on a ventilator . Counseled them we should honor our wishes Code status: Code status was changed to DNRCC , palliative on board. Family/POA:Brother
[2016-11-24] MEDS: Divalproex (12 HR) 500 MG TABLET PO SCH (07:41)
[2016-11-24] MEDS: FentaNYL (PF) 1,000 MCG in 0.9 % Sodium Chloride 80 ML IVC SCH (07:42)
[2016-11-24] MEDS: Acyclovir 750 MG in D5% in Water 250 ML IVPB SCH (07:52)
[2016-11-24] MEDS: Pantoprazole 40 MG VIAL IVP SCH (07:57)
[2016-11-24] MEDS: Miconazole w/zinc oxide&karaya 92 APPL/92 GM TUBE TP SCH (07:58)
[2016-11-24] MEDS: Chlorhexidine Rinse 15 ML MOUTHWASH MM SCH (07:58)
[2016-11-24] MEDS ORDERED: Docusate Oral Soln 100 MG/10 ML UDC PO SCH (10:00)
--- NOTE | 2016-11-24 10:59 | Neurology Progress Note ---
<Gary Tai - Last Filed: 11/24/16 11:40> Date of Encounter: 11/24/16 Time of Encounter: 09:45 Assessment and Plan (1) Parkinsonism Current Visit: Yes Status: Acute The patient has been continued on Dantrolene, acyclovir and zosyn for the time being. The ICU staff reports that when the sedation is lightened, she is responsive to commands and appears to be functioning appropriately. The ICU reports that the patient's family wants to withdrawal care, including mechanical ventilation. It is unclear how much, if any, of the medications that they want stopped. From a neurological standpoint, there does not appear to be a reason why she couldn't return to her previous baseline. Though with her sedation, it is difficult to say if she has been having much recovery so far. She underwent a lumbar puncture previously that did not readily identify any organisms, but did show elevated cell count and glucose. Preliminary CSF cultures show no growth so far. The abnormalities present could represent aseptic menigitis and it is recommended that she continue the acyclovir, but that decision is deferred to infectious disease and her primary team. The patient's family has declined having labs performed today in order to continue to monitor the progress of her care, including her CPK. Prior to the family refusal of labs, she was having improvement in her CK. It would appear okay to finish the dantrolene today, then stop it. Given the family's desire to begin to withdrawal care, will defer care to family desire for care and recommendations from palliative care. 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, unspecified Subjective Principal diagnosis: Acute Respiratory Failure, AMS, rigidity Interval history: When patient seen this morning she is sedated on propofol and fentanyl, so I was not able to assess her overall function. She did appear to be breathing over the ventilator. She was able to open her eyes to gentle tactile stimuli, but quickly fell back asleep. She was too sedated to focus on anything in particular. Pupils did respond to light bilaterally and DTRs are difficult to assess. Objective - Constitutional Vitals: Temp Pulse Resp BP Pulse Ox 98.5 F 83 25 126/68 97 11/24/16 07:25 11/24/16 09:00 11/24/16 09:43 11/24/16 09:43 11/24/16 09:43 General appearance: Present: obese Exam: Patient is intubated and sedated on propofol and fentanly, minimally responsive currently - Head Head exam: Present: atraumatic, normocephalic - Eye Eye exam: Present: PERRL - Neurological Exam Reflexes: Biceps: 1+, Patella: 1+ Mental Status Examination: Present: drowsy (sedated), opens eyes to voice Results - Laboratory Findings CBC and BMP: 11/23/16 04:01 11/23/16 04:01 Abnormal lab findings: Abnormal lab results WBC 15.8 K/mcL (4.3-11.1) H 11/23/16 04:01 RBC 3.81 M/mcL (3.82-4.97) L 11/23/16 04:01 Neutrophils # 10.8 K/mcL (1.6-8.9) H 11/23/16 04:01 PT 13.4 Seconds (9.4-12.1) H 11/22/16 07:34 ABG pO2 105 mmHg (85-104) H 11/23/16 04:17 ABG Total CO2 28 mEq/L (20-26) H 11/23/16 04:17 Potassium 3.0 mEq/L (3.5-4.5) L 11/23/16 04:01 Chloride 111 mEq/L (98-109) H 11/23/16 04:01 BUN 30 mg/dL (7-20) H 11/23/16 04:01 Est GFR (Non-Af Amer) 57 (> 60) L 11/23/16 04:01 BUN/Creatinine Ratio 32 (6-26) H 11/23/16 04:01 Glucose 223 mg/dL (70-99) H 11/23/16 04:01 POC Glucose 296 (58-89) H 11/24/16 05:24 Calculated Osmolality 309 (280-300) H 11/23/16 04:01 Calcium 8.4 mg/dL (8.6-10.8) L 11/23/16 04:01 AST 43 Units/L (5-34) H 11/22/16 03:53 ALT 66 Units/L (0-55) H 11/22/16 03:53 Creatine Kinase 173 Units/L (29-168) H 11/23/16 04:01 Serum Total Protein 5.6 g/dL (6.0-8.3) L 11/21/16 09:44 Albumin 2.7 g/dL (3.5-5.0) L 11/21/16 09:44 Albumin/Globulin Ratio 0.9 (1.1-2.2) L 11/21/16 09:44 CSF RBC 0.042 M/mcL (0.000-0.002) H 11/22/16 11:49 CSF Tot Nucleated Cells 60 TNC/mcL (0-5) H* 11/22/16 11:49 CSF Glucose 151 mg/dL (40-70) H 11/22/16 11:49 CSF Total Protein 224 mg/dL (15-45) H 11/22/16 11:49 Muir < 0.1 mEq/L (0.6-1.2) L 11/21/16 14:22 Consult Discharge Plan - Plan Referrals: Ludwin Mcdonnell MD [Primary Care Provider] - <Castro Hitchcock - Last Filed: 11/24/16 15:43> Date of Encounter: 11/24/16 Assessment and Plan (1) Parkinsonism Current Visit: Yes Status: Acute As above. I agree with Dr. Tai's statement as transcribed. It would be my pleasure to reevaluate her at any time. 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, unspecified Subjective Interval history: As above. Dr. Tai and I assessed this patient together. I agree with his account as stated above. Objective - Constitutional Vitals: Temp Pulse Resp BP Pulse Ox 98.5 F 83 16 124/66 99 11/24/16 07:25 11/24/16 11:00 11/24/16 11:21 11/24/16 11:21 11/24/16 13:18 Results - Laboratory Findings CBC and BMP: 11/23/16 04:01 11/23/16 04:01 Abnormal lab findings: Abnormal lab results WBC 15.8 K/mcL (4.3-11.1) H 11/23/16 04:01 RBC 3.81 M/mcL (3.82-4.97) L 11/23/16 04:01 Neutrophils # 10.8 K/mcL (1.6-8.9) H 11/23/16 04:01 PT 13.4 Seconds (9.4-12.1) H 11/22/16 07:34 ABG pO2 105 mmHg (85-104) H 11/23/16 04:17 ABG Total CO2 28 mEq/L (20-26) H 11/23/16 04:17 Potassium 3.0 mEq/L (3.5-4.5) L 11/23/16 04:01 Chloride 111 mEq/L (98-109) H 11/23/16 04:01 BUN 30 mg/dL (7-20) H 11/23/16 04:01 Est GFR (Non-Af Amer) 57 (> 60) L 11/23/16 04:01 BUN/Creatinine Ratio 32 (6-26) H 11/23/16 04:01 Glucose 223 mg/dL (70-99) H 11/23/16 04:01 POC Glucose 296 (58-89) H 11/24/16 05:24 Calculated Osmolality 309 (280-300) H 11/23/16 04:01 Calcium 8.4 mg/dL (8.6-10.8) L 11/23/16 04:01 AST 43 Units/L (5-34) H 11/22/16 03:53 ALT 66 Units/L (0-55) H 11/22/16 03:53 Creatine Kinase 173 Units/L (29-168) H 11/23/16 04:01 Serum Total Protein 5.6 g/dL (6.0-8.3) L 11/21/16 09:44 Albumin 2.7 g/dL (3.5-5.0) L 11/21/16 09:44 Albumin/Globulin Ratio 0.9 (1.1-2.2) L 11/21/16 09:44 CSF RBC 0.042 M/mcL (0.000-0.002) H 11/22/16 11:49 CSF Tot Nucleated Cells 60 TNC/mcL (0-5) H* 11/22/16 11:49 CSF Glucose 151 mg/dL (40-70) H 11/22/16 11:49 CSF Total Protein 224 mg/dL (15-45) H 11/22/16 11:49 Muir < 0.1 mEq/L (0.6-1.2) L 11/21/16 14:22
--- NOTE | 2016-11-24 11:26 | Event Note ---
Date of Encounter: 11/24/16 Time of Encounter: 11:18 Discussion between power of trial attorney, family, palliative, and pulmonary determined that care will be withdrawn per the patient's wishes. Plan for compassionate extubation this afternoon. Code status was changed from DNR-CCA to DNR-CC. Antibiotics and other nonpalliative medications were withdrawn.
[2016-11-24] MEDS ORDERED: Dexmedetomidine HCl 400 MCG/100 ML MLS IVC SCH (13:00)
[2016-11-24] MEDS ORDERED: Dexmedetomidine HCl 400 MCG/100 ML MLS IVC ONE (13:03)
[2016-11-24] MEDS ORDERED: *HR* LORazepam 2 MG/ML VIAL IVP PRN (13:13)
[2016-11-24] MEDS ORDERED: *HR* Morphine 2 MG/ML SYRINGE IVP PRN (13:14)
--- NOTE | 2016-11-24 13:29 | Palliative - Consult Note ---
Date of Encounter: 11/24/16 Time of Encounter: 13:00 - Assessment and Plan (1) Generalized pain Current Visit: Yes Status: Acute Assessment and plan: Continue Fentanyl at this time. Has PRN Morphine as well. Monitor (2) Dyspnea Current Visit: Yes Status: Acute Assessment and plan: Currently has IV FEntanyl...Continue for now and through extubation. Have low dose Morphine available PRN if needed. Supportive oxygen. Qualifiers: Dyspnea type: unspecified Qualified Code(s): R06.00 - Dyspnea, unspecified (3) Anxiety Current Visit: Yes Status: Acute Assessment and plan: She is currently on Precedex.. Will have IV Lorazepam available if she transfers off ICU. (4) Counseling regarding advanced care planning and goals of care Current Visit: Yes Status: Acute Assessment and plan: Multiple family members at bedside including BRother, Alexey (POA) and son Castro who arrived from [place]. Family has spoken with Dr. Castro Hitchcock Neurology at length, as well as protective signal installer Dr. Pool. After consideration of either continuing vent support, doing limited care with continuation of antibiotics, or comfort care, family believes that patient would desire comfort care at this point. She had been very verbal about her wishes when her health and dementia began to cause her decline. Family stated that she had expressed if she would have "event" or "health crisis" that was life threatening, she wanted nature to take its course and not have aggressive care. They feel that physician's have communicated openly and honestly regarding the unknown of her mental status, or what her recovery will be, as it appears she has not had an event to cause permanent brain injury. FAmily discussing how she has declined rapidly over the last few months. Family all agrees that she would only want kept comfortable. Code status has been transitioned to DNRCC. SHe will be extubated this afternoon. Will evaluate her clinical status daily, and based on that information, will discuss with family options for continued care. (5) Aseptic meningitis Current Visit: Yes Status: Acute (6) Altered mental state Current Visit: Yes Status: Acute Qualifiers: Altered mental status type: stupor Qualified Code(s): R40.1 - Stupor (7) Neuroleptic malignant syndrome Current Visit: Yes Status: Acute Assessment and plan: Last dose of Dantrolene was today. Neurology has been following patient closely / (8) Parkinsonism Current Visit: Yes Status: Acute 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, unspecified Palliative-CN HPI - Data of Consult Requesting Physician: Jaydon Zelaya MD Primary Care Provider: Ludwin Mcdonnell MD - Consult Narrative History of present illness: Patient is a 76 year old female past medical history of atrial fibrillation asthma CHF cardiomyopathy COPD dementia diabetes GERD hyperlipidemia hypertension and liver disease. Information has been obtained from family, medical records as well as nursing staff due to patient's altered mental state . 24 hours prior to admission, she was displaying worsening mental state. She does have a history of dementia however family reported that she was unable to carry a conversation which was concerning to them her last known well was on Tuesday or Tuesday. She did present to the [place] for evaluation. According to ER records upon presentation it appears she was septic with tachycardia and temperature of 100.9 her white count 19. Urine was indicative of UTI. CT of head was obtained which was concerning for acute to subacute left occipital infarct, however MRI was negative for stroke. Medication review prior to admission indicated pt on several SSRI, and also receiving medications that can lead to rigidity, and these were discontinued. Psychiatry evaluated patient, as well an neurology were closely involved. She was treated for Neuroleptic Malignant Syndrome, and also began on antiviral therapy for suspected meningitis. She developed a mucus plus shortly after admission, which required intubation, and remains on the ventilator. She has brother Alexey, which is medical power of attorney general, and son Castro, who has arrived from [facility]. Upon my visit, multiple family members are present. She remains sedated, and staff currently weaning down propofol to prepare for extubation. FAmily has been adamant, that patient had expressed she never wanted to be placed on life support. She has also completed advanced directives, and these are present on her record. Currently family awaiting visit from neurologist and desire to speak with protective signal installer regarding her respiratory status prior to making any further decision regarding her care. CC: Jaydon Zelaya MD Past Med Surg Social Fam HX - Past Medical History Medical history: arthritis, asthma, atrial fibrillation, cardiomyopathy, CHF, COPD, dementia, diabetes, GERD, hyperlipidemia, hypertension, liver disease, osteoporosis Psychiatric history: other - Social History Smoking Status: Former smoker Smokeless Tobacco Status: No Alcohol use: none Drug use: none Medications and Allergies Acetaminophen [Tylenol] 650 mg PO Q6HR PRN 11/19/16 [History] Albuterol Sulfate [Albuterol Inhaler] 1 puff IH Q4HR PRN 11/19/16 [History] Ascorbate Calcium [Vitamin C] 500 mg PO DAILY 11/19/16 [History] Citalopram [CeleXA] 10 mg PO DAILY 11/19/16 [History] Divalproex (12 HR) [Depakote (12 HR)] 1,000 mg PO DAILY 11/19/16 [History] Docusate [Colace] 100 mg PO BID 11/19/16 [History] Gabapentin [Neurontin] 300 mg PO BID 11/19/16 [History] Glimepiride [Amaryl] 2 mg PO 0800 11/19/16 [History] Haloperidol [Haldol] 5 mg PO TID 11/19/16 [History] Insulin ASPART [NovoLOG] 0 - 12 unit SQ TID PRN 11/19/16 [History] Insulin Glargine [Lantus] 30 unit SQ HS 11/19/16 [History] Iron,Carbonyl [Feosol] 325 mg PO QAM 11/19/16 [History] Lisinopril [Zestril] 10 mg PO DAILY 11/19/16 [History] [place] Carbonate 300 mg PO DAILY 11/19/16 [History] Metoclopramide [Reglan] 10 mg PO TID 11/19/16 [History] Multivitamin-Min/Iron/FA/Vit K [Multi-Day Plus Minerals Tablet] 1 each PO DAILY 11/19/16 [History] Naproxen [Naprosyn] 500 mg PO Q12H PRN 11/19/16 [History] Nortriptyline [Pamelor] 25 mg PO HS 11/19/16 [History] Omeprazole [PriLOSEC] 20 mg PO DAILY 11/19/16 [History] Ondansetron HCl [Zofran] 4 mg PO Q8H PRN 11/19/16 [History] Polyethylene Glycol [Polyox Wsr-301] 17 gm MC BID 11/19/16 [History] Pravastatin Sodium 10 mg PO DAILY 11/19/16 [History] Sodium Chloride 1,000 mg PO BID 11/19/16 [History] Zolpidem [Ambien] 5 mg PO HS 11/19/16 [History] metFORMIN [Glucophage] 1,000 mg PO BIDWM 11/19/16 [History] traZODone [TraZODone] 100 mg PO HS 11/19/16 [History] 3 Allergy/AdvReac Type Severity Reaction Status Date / Time codeine Allergy Vomiting Verified 12/27/15 10:50 iodine Allergy See Verified 11/19/16 09:05 Comments propoxyphene [From Darvon] Allergy Vomiting Verified 11/19/16 09:05 ROS unobtainable: due to endotracheal tube Palliative Care-Exam - Constitutional Vitals: Temp Pulse Resp BP Pulse Ox 98.5 F 83 16 124/66 97 11/24/16 07:25 11/24/16 11:00 11/24/16 11:21 11/24/16 11:21 11/24/16 11:21 General appearance: Present: average body habitus, no acute distress. Absent: febrile - Head Head Exam: Present: normal inspection, normocephalic - Eye Eye exam: Present: PERRL - ENT ENT exam: Present: mucous membranes dry - Respiratory Respiratory exam: Present: decreased breath sounds, CTAB - Cardiovascular Cardiovascular exam: Present: +S1, +S2 - GI/Abdominal Exam GI/Abdominal exam: Present: distended, normal bowel sounds, soft - Catheter Type: Urethral (Nicolas) - Extremities Exam Additional comments: Upper extremities edematous. Left arm greater than right with erythema - Neurological Exam Additional comments: Remains sedated on vent - Skin Skin exam: Present: dry, pallor, warm Internal Medicine - CN: Reslt - Labs CBC & Chem 7: 11/23/16 04:01 11/23/16 04:01 - ABG Interpretation ABG results: ABG ABG pH 7.43 pH Units (7.32-7.45) 11/23/16 04:17 ABG pCO2 40 mmHg (35-45) 11/23/16 04:17 ABG pO2 105 mmHg (85-104) H 11/23/16 04:17 ABG O2 Saturation 98 % (95-98) 11/23/16 04:17 PT/INR, D-dimer PT 13.4 Seconds (9.4-12.1) H 11/22/16 07:34 Consult Discharge Plan - Plan Referrals: uLdwin Mcdonnell MD [Primary Care Provider] - Palliative Quality Palliative Quality: Screen for Code Status: Yes, Screen for Goals of Care: Yes, Screen for Pain: NA (sedated on vent), If Pain Regimen Started, Initiate Bowel Regimen: NA, Screen for Nausea/Vomitting: NA Code Status: 11/19/16 13:51 Resuscitation Status: Active [RES] Routine Comment: Resuscitation Status: DNR-Comfort Care-Arrest Resuscitation Status: Active [RES] Routine Comment: Resuscitation Status: Full Code Resuscitation Status: Active [RES] Routine Comment: Resuscitation Status: DNR-Comfort Care
--- NOTE | 2016-11-24 13:59 | Event Note ---
Date of Encounter: 11/24/16 Time of Encounter: 11:00 Case discussed with the pulmonary/critical care team after family meeting. The family has opted to terminally extubate and stop aggressive measures, including antibiotics. ID team has no further recommendations. Will sign off. Please re- consult if new needs arise.
[2016-11-24] MEDS ORDERED: DANTROLENE SODIUM IVPB SCH (14:00)
[2016-11-24] MEDS ORDERED: WATER FOR INJ IVPB SCH (14:00)
[2016-11-24] MEDS ORDERED: Ondansetron 4 MG/2 ML VIAL IVP PRN (16:55)
[2016-11-24] MEDS: *HR* LORazepam 2 MG/ML VIAL IVP PRN ×2 (18:28→23:29)
[2016-11-24] MEDS: *HR* Morphine 2 MG/ML SYRINGE IVP PRN (19:31)
[2016-11-25] MEDS: *HR* Morphine 2 MG/ML SYRINGE IVP PRN (06:31)
[2016-11-25 07:44] VITALS: BP 118/67
--- NOTE | 2016-11-25 09:07 | Discharge Summary ---
Date of Encounter: 11/25/16 Time of Encounter: 09:02 - Discharge Diagnosis (1) Acute respiratory failure with hypoxia Priority: Primary Status: Acute (2) Aseptic meningitis Priority: Secondary Status: Acute (3) COPD (chronic obstructive pulmonary disease) Priority: Secondary Status: Chronic Qualifiers: COPD type: unspecified COPD Qualified Code(s): J44.9 - Chronic obstructive pulmonary disease, unspecified (4) Counseling regarding advanced care planning and goals of care Priority: Secondary Status: Acute (5) Delirium Priority: Secondary Status: Acute (6) Dementia Priority: Secondary Status: Chronic Qualifiers: Dementia type: unspecified type Dementia behavioral disturbance: without behavioral disturbance Qualified Code(s): F03.90 - Unspecified dementia without behavioral disturbance (7) Diabetes Priority: Secondary Status: Chronic Qualifiers: Diabetes mellitus type: type 2 Diabetes mellitus complication status: without complication Diabetes mellitus retirement insulin use: with medical terminologist use Qualified Code(s): E11.9 - Type 2 diabetes mellitus without complications ; Z79.4 - superintendent terminal (current) use of insulin; Z79.4 - superintendent terminal (current) use of insulin; Z79.4 - superintendent terminal (current) use of insulin; Z79.4 - superintendent terminal ( current) use of insulin (8) DVT prophylaxis Priority: Secondary Status: Acute (9) Hypertension Priority: Secondary Status: Chronic Qualifiers: Hypertension type: essential hypertension Qualified Code(s): I10 - Essential (primary) hypertension (10) Neuroleptic malignant syndrome Priority: Secondary Status: Acute (11) UTI (urinary tract infection) Priority: Secondary Status: Acute Qualifiers: Urinary tract infection type: acute cystitis Hematuria presence: without hematuria Qualified Code(s): N30.00 - Acute cystitis without hematuria - Discharge Medications Home Medications: LORazepam [Ativan] 1 mg IVP Q4H PRN vial 11/25/16 [Rx] Morphine [Morphine Sulfate] 2 mg IVP Q1H PRN syringe 11/25/16 [Rx] Ondansetron [Zofran] 4 mg IVP Q8HR PRN vial 11/25/16 [Rx] Allergies/Adverse Reactions: 3 Allergy/AdvReac Type Severity Reaction Status Date / Time codeine Allergy Vomiting Verified 12/27/15 10:50 iodine Allergy See Verified 11/19/16 09:05 Comments propoxyphene [From Darvon] Allergy Vomiting Verified 11/19/16 09:05 Procedures/tests Complete & Pending: Procedures Performed prior 72 hours Category Date Time Status Venous Doppler [EV venous imaging LE BI] Routine Y 11/23/16 11:22 Completed Venous Doppler [EV venous imaging UE BI] Routine Y 11/23/16 11:24 Completed Date of admission: 11/19/16 15:41 Primary care physician: Ludwin Mcdonnell MD Consults: 11/19/16 14:55 Consult to Neurology [CONS] Routine Consulting Provider: Neurology [facility] Reason for Consult: Acute to subacute left occipital infarct Time Notified: 14:55 Call Completed: Yes 11/22/16 08:20 Consult to Psychiatry [CONS] Routine Consulting Provider: Psychiatry [place] Reason for Consult: psychiatry consult to rule out malignant catatonia. Call Completed: No 11/23/16 15:55 Consult to Palliative Care [CONS] Routine Comment: Consulting Provider: Palliative [facility] [place] Reason for Consult: Goals of care Time Notified: 15:55 Call Completed: Yes Discharging clinician: Becky Carmichael Anticipated date of discharge: 11/25/16 - Patient Status Disposition: Hospice - Medical Facility Condition: Serious Functional capacity at discharge: bed bound Overall status at discharge: patient is not back to baseline - Discharge Instructions Follow Up With: Ludwin Mcdonnell MD [Primary Care Provider] - Hospital course: Ms. Dejesus is a 76 year old female patient with history of COPD, diabetes, CHF, cardiomyopathy, dementia, atrial fibrillation who was admitted with a CVA with left occipital infarct. She was also diagnosed with sepsis from urinary tract infection. Neurology was consulted and per their evaluation, they were concerned about neuroleptic malignant syndrome. She was started on dantrolene and also underwent lumbar puncture and her psychotropic medications were stopped. Her symptoms of rigidity and parkinsonism improved after she was started on dantrolene. A spinal fluid analysis was concerning for aseptic meningitis and patient was started on acyclovir pending serologies. Infectious disease and psychiatric were also consulted in helping manage patient's care. On 11/22/16, patient Developed respiratory distress with acute respiratory failure related to mucous plug. She was intubated and transferred to the ICU for further management. Patient continued to be treated for the above conditions. Palliative care was consulted as patient had prior expressed wishes to not be intubated. After discussing with family members, patient was extubated and made DNR comfort care. She was then [facility]. At presently, patient is being discharged and will be admitted to inpatient hospice. Comfort care will be continued. Patient is currently not receiving morphine and Ativan as needed. She is not responding to verbal commands likely due to sedation. She will be managed by palliative care while in inpatient hospice. - Time Spent with Patient Total time spent providing and/or coordinating discharge services: Less than 30 minutes (20 min) - Constitutional Vitals: Temp Pulse Resp BP Pulse Ox 100.2 F H 102 20 118/67 96 11/25/16 07:34 11/25/16 07:34 11/25/16 07:34 11/25/16 07:34 11/25/16 07:34 General appearance: Present: A&O X 0. Absent: answers questions appropriately - ENT Additional comments: oxymask in place - Respiratory Respiratory exam: Absent: accessory muscle use, rales, rhonchi, wheezes Additional comments: bilateral crackles - Cardiovascular Cardiovascular exam: Present: RRR, +S1, +S2. Absent: diastolic murmur, gallop, rubs, systolic murmur - Neurological Exam Neurological exam: Present: altered Additional comments: pupils reactive
--- NOTE | 2016-11-25 09:29 | Palliative Progress Note ---
Date of Encounter: 11/25/16 Time of Encounter: 07:55 - Assessment and plan (1) COPD (chronic obstructive pulmonary disease) Current Visit: No Status: Chronic Assessment and plan: With respiratory failure. Patient has been extubated now and is not willing to be reintubated. Patient be transitioned GIP Qualifiers: COPD type: unspecified COPD Qualified Code(s): J44.9 - Chronic obstructive pulmonary disease, unspecified (2) Sepsis Current Visit: Yes Status: Acute Assessment and plan: Per patient's long-term request family has worked Qualifiers: Sepsis type: sepsis due to unspecified organism Qualified Code(s): A41.9 - Sepsis, unspecified organism (3) Delirium Current Visit: Yes Status: Acute Assessment and plan: Undoubtedly multifactorial in nature. Vacations it may be contributing to this have all been stopped. However the patient's not to be treated for the sepsis any further. Patient also has underlying dementia. Plan is for general inpatient hospice care. (4) UTI (urinary tract infection) Current Visit: Yes Status: Acute Assessment and plan: Antibiotics at been stopped per patient and family request. Qualifiers: Urinary tract infection type: acute cystitis Hematuria presence: without hematuria Qualified Code(s): N30.00 - Acute cystitis without hematuria (5) Counseling regarding advanced care planning and goals of care Current Visit: Yes Status: Acute Assessment and plan: DNR comfort care, patient transit transition to general inpatient hospice care today. Overall plan is for transition back to and her. - Time Spent With Patient Total time spent is greater than 50% in coordination of care (as documented) at patient's floor/unit and/or counseling patient: - Subjective Interval history: Able this morning per family this present, no events noted overnight patient appears comfortable at this time. He transitioned to hospice today. - Constitutional Vitals: Abnormal lab results WBC 15.8 K/mcL (4.3-11.1) H 11/23/16 04:01 RBC 3.81 M/mcL (3.82-4.97) L 11/23/16 04:01 Neutrophils # 10.8 K/mcL (1.6-8.9) H 11/23/16 04:01 PT 13.4 Seconds (9.4-12.1) H 11/22/16 07:34 ABG pO2 105 mmHg (85-104) H 11/23/16 04:17 ABG Total CO2 28 mEq/L (20-26) H 11/23/16 04:17 Potassium 3.0 mEq/L (3.5-4.5) L 11/23/16 04:01 Chloride 111 mEq/L (98-109) H 11/23/16 04:01 BUN 30 mg/dL (7-20) H 11/23/16 04:01 Est GFR (Non-Af Amer) 57 (> 60) L 11/23/16 04:01 BUN/Creatinine Ratio 32 (6-26) H 11/23/16 04:01 Glucose 223 mg/dL (70-99) H 11/23/16 04:01 POC Glucose 296 (58-89) H 11/24/16 05:24 Calculated Osmolality 309 (280-300) H 11/23/16 04:01 Calcium 8.4 mg/dL (8.6-10.8) L 11/23/16 04:01 AST 43 Units/L (5-34) H 11/22/16 03:53 ALT 66 Units/L (0-55) H 11/22/16 03:53 Creatine Kinase 173 Units/L (29-168) H 11/23/16 04:01 Serum Total Protein 5.6 g/dL (6.0-8.3) L 11/21/16 09:44 Albumin 2.7 g/dL (3.5-5.0) L 11/21/16 09:44 Albumin/Globulin Ratio 0.9 (1.1-2.2) L 11/21/16 09:44 CSF RBC 0.042 M/mcL (0.000-0.002) H 11/22/16 11:49 CSF Tot Nucleated Cells 60 TNC/mcL (0-5) H* 11/22/16 11:49 CSF Glucose 151 mg/dL (40-70) H 11/22/16 11:49 CSF Total Protein 224 mg/dL (15-45) H 11/22/16 11:49 [place] < 0.1 mEq/L (0.6-1.2) L 11/21/16 14:22 General appearance: Present: no acute distress - Head Head exam: Present: atraumatic, normal inspection - Eye Eye exam: Present: normal appearance - Respiratory Respiratory exam: Present: decreased breath sounds - Cardiovascular Cardiovascular exam: Present: RRR - GI/Abdominal GI/Abdominal exam: Present: normal bowel sounds, soft. Absent: tenderness - Extremities Exam Extremities exam: Present: pedal edema. Absent: tenderness - Neurological Exam Neurological exam: Present: altered - Psychiatric Psychiatric exam: Absent: agitated, anxious - Skin Skin exam: Present: dry, warm Palliative Quality Palliative Quality: Screen for Code Status: Yes, Screen for Goals of Care: Yes, Screen for Pain: Yes, If Pain Regimen Started, Initiate Bowel Regimen: Yes, Screen for Nausea/Vomitting: Yes Code Status: 11/19/16 13:51 Resuscitation Status: Active [RES] Routine Comment: Resuscitation Status: DNR-Comfort Care-Arrest Resuscitation Status: Active [RES] Routine Comment: Resuscitation Status: Full Code Resuscitation Status: Active [RES] Routine Comment: Resuscitation Status: DNR-Comfort Care - Labs CBC & Chem 7: 11/23/16 04:01 11/23/16 04:01 - ABG Interpretation ABG results: ABG ABG pH 7.43 pH Units (7.32-7.45) 11/23/16 04:17 ABG pCO2 40 mmHg (35-45) 11/23/16 04:17 ABG pO2 105 mmHg (85-104) H 11/23/16 04:17 ABG O2 Saturation 98 % (95-98) 11/23/16 04:17 PT/INR, D-dimer PT 13.4 Seconds (9.4-12.1) H 11/22/16 07:34 Consult Discharge Plan - Plan Referrals: Ludwin Mcdonnell MD [Primary Care Provider] -
--- NOTE | 2016-11-25 09:32 | Event Note ---
Date of Encounter: 11/25/16 Time of Encounter: 09:30 Hospice adjunct faculty for medical terminology certification of terminal illness: Hospice benefit. Start: 11/25/2016 Hospice benefit. In: +90 days Palliative performance scale: 20% History: Patient with history of dementia, now with respiratory failure secondary to sepsis and possibly neuro-malignant syndrome both of which are not being treated. The patient is not taking any by mouth, and there is no plans for artificial feeding. Patient also is exceedingly frail. Combination of frailty , coupled with dementia and no longer eating, now with sepsis has resulted in respiratory failure leads me to believe that These findings support a life expectancy of 6 months or less I attest that I have compose the above narrative based on my review of the patient's medical records, and or on my examination of the patient. Mitchell Quan M.D. Associate medical anthropology director. [facility]
[2016-11-25 15:56] LABS: HSV Source CSF
== END 2016-11-25 10:07 | disposition hospice, inpatient (51) | DRG 871 ==
LOC: 2NNU → SUATTDRO 15:41 → ICNU 11-22 18:01 → 2ANU 11-24 17:31
PROVIDERS: ADMIT Internal Medicine; ATTEND Internal Medicine

== ENCOUNTER 2016-11-25 08:56 | Inpatient (IN) ==
[2016-11-25] MEDS ORDERED: *HR* LORazepam Oral Conc 2 MG/ML PO PRN (09:01)
[2016-11-25] MEDS ORDERED: Ondansetron 4 MG/2 ML VIAL IVP PRN (09:01)
[2016-11-25] MEDS ORDERED: Haloperidol Oral Conc 10 MG/5 ML UDC PO PRN (09:01)
[2016-11-25] MEDS ORDERED: Atropine Sulfate 1% 40 DROP/2 ML BOTTLE SL PRN (09:01)
[2016-11-25] MEDS ORDERED: Bisacodyl 10 MG RECTAL SUPPOSITORY RC PRN (09:01)
[2016-11-25] MEDS ORDERED: Haloperidol Lactate 5 MG/ML VIAL IVP PRN (09:01)
[2016-11-25] MEDS ORDERED: Scopolamine Patch 1.5 MG PATCH.TD72 TD SCH (09:15)
--- NOTE | 2016-11-25 09:35 | Pallative History & Physical ---
Date of Encounter: 11/25/16 Time of Encounter: 07:55 Assessment and Plan (1) Acute respiratory failure with hypoxia Status: Acute Continue medications for trouble breathing. Patient has been extubated will not be reintubated. (2) Aseptic meningitis Status: Acute Family history declined any further antiviral therapy. He to watch. (3) Counseling regarding advanced care planning and goals of care Status: Acute General inpatient hospice, DO NOT RESUSCITATE comfort care. Patient will be maintained here in the hospital the next several days to assess needs for pain control and/or breathing control. Transition is anticipated to [facility] in several days. (4) Dyspnea Status: Acute Medications for dyspnea are written for. Continue watch Qualifiers: Dyspnea type: unspecified Qualified Code(s): R06.00 - Dyspnea, unspecified (5) Generalized pain Status: Acute Pain medicines pain medications available on a when necessary basis continue to watch (6) Sepsis Status: Acute Per family and per patient request no further treatment for the sepsis will be entertained. Continue to watch Qualifiers: Sepsis type: sepsis due to unspecified organism Qualified Code(s): A41.9 - Sepsis, unspecified organism Internal Medicine - H&P: HPI Admitted From: Intrahospital Transfer Plans for Post Hospital Care: Hospice - Home History of present illness: Ms. Dejesus is a 76 year old female 76-year-old female that was admitted with sepsis when into respiratory failure was subsequently intubated. It is unclear if part of the patient's problems may very well have also been medication related resulting in either her malignant syndrome or serotonin syndrome however all these medications have been stopped. Patient had stated clearly to family that if her dementia got worse, where she had a worsenings condition that she would not want to have any further treatment done and due to those concerns family history requested the patient be extubated. And comfort measures only be initiated. She will come in to general inpatient hospice symptom control as the patient was just extubated secondary to free failure yesterday. She is also extremely frail, also has dementia and is not eating. In addition she has sepsis, which is not being treated. The patient is unresponsive to voice at this time but appears very comfortable. Past Med Surg Social Fam HX - Past Medical History Medical history: arthritis, asthma, atrial fibrillation, cardiomyopathy, CHF, COPD, dementia, diabetes, GERD, hyperlipidemia, hypertension, liver disease, osteoporosis Psychiatric history: other - Social History Smoking Status: Former smoker Smokeless Tobacco Status: No Alcohol use: none Drug use: none Internal Medicine - H&P: Meds LORazepam [Ativan] 1 mg IVP Q4H PRN vial 11/25/16 [Rx] Morphine [Morphine Sulfate] 2 mg IVP Q1H PRN syringe 11/25/16 [Rx] Ondansetron [Zofran] 4 mg IVP Q8HR PRN vial 11/25/16 [Rx] 3 Allergy/AdvReac Type Severity Reaction Status Date / Time codeine Allergy Vomiting Verified 12/27/15 10:50 iodine Allergy See Verified 11/19/16 09:05 Comments propoxyphene [From Darvon] Allergy Vomiting Verified 11/19/16 09:05 ROS unobtainable: due to mental status Palliative Care-Exam - Constitutional General appearance: Present: no acute distress - Head Head Exam: Present: atraumatic, normal inspection - Eye Eye exam: Present: normal appearance - Respiratory Respiratory exam: Present: decreased breath sounds - Cardiovascular Cardiovascular exam: Present: RRR - GI/Abdominal Exam GI/Abdominal exam: Present: normal bowel sounds, soft. Absent: tenderness - Catheter Type: Urethral (Nicolas) - Extremities Exam Extremities exam: Present: pedal edema. Absent: tenderness - Neurological Exam Neurological exam: Present: altered - Psychiatric Psychiatric exam: Absent: agitated, anxious - Skin Skin exam: Present: dry, warm Palliative Quality Palliative Quality: Screen for Code Status: Yes, Screen for Goals of Care: Yes, Screen for Pain: Yes, If Pain Regimen Started, Initiate Bowel Regimen: Yes, Screen for Nausea/Vomitting: Yes Code Status: 11/25/16 09:01 Resuscitation Status: Active [RES] Stat Comment: Resuscitation Status: DNR-Comfort Care
[2016-11-25] MEDS: *HR* Morphine 2 MG/ML SYRINGE IVP PRN (14:54)
[2016-11-25 19:03] VITALS: BP 135/63
[2016-11-25] MEDS: Acetaminophen 650 MG RECTAL SUPP RC PRN (20:37)
--- NOTE | 2016-11-26 09:06 | Palliative - Consult Note ---
Date of Encounter: 11/26/16 Time of Encounter: 09:00 - Assessment and Plan (1) Excessive oral secretions Current Visit: Yes Status: Acute Assessment and plan: Continue scopolamine patch and Atropine drops PRN (2) Dyspnea Current Visit: No Status: Acute Assessment and plan: Continue IV Morphine PRN. Has utilized x1 last 24 hours. She appears is mild respiratory distress. Spoke with nursing who will medicate her soon. 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, unspecified (5) Sepsis Current Visit: No Status: Acute Qualifiers: Sepsis type: sepsis due to unspecified organism Qualified Code(s): A41.9 - Sepsis, unspecified organism (6) Aseptic meningitis Current Visit: No Status: Acute Palliative-CN HPI - Data of Consult Consult date: 11/26/16 Requesting Physician: Mitchell Quan MD Primary Care Provider: Ludwin Mcdonnell MD - Consult Narrative History of present illness: Patient is a 76 year old female past medical history of atrial fibrillation asthma CHF cardiomyopathy COPD dementia diabetes GERD hyperlipidemia hypertension and liver disease. Information has been obtained from family, medical records as well as nursing staff due to patient's altered mental state . 24 hours prior to admission, she was displaying worsening mental state. She does have a history of dementia however family reported that she was unable to carry a conversation which was concerning to them her last known well was on Tuesday or Tuesday. She did present to the [place] [facility] for evaluation. According to ER records upon presentation it appears she was septic with tachycardia and temperature of 100.9 her white count 19. Urine was indicative of UTI. CT of head was obtained which was concerning for acute to subacute left occipital infarct, however MRI was negative for stroke. Medication review prior to admission indicated pt on several SSRI, and also receiving medications that can lead to rigidity, and these were discontinued. Psychiatry evaluated patient, as well an neurology were closely involved. She was treated for Neuroleptic Malignant Syndrome, and also began on antiviral therapy for suspected meningitis. She developed a mucus plus shortly after admission, which required intubation. After son arrived from [facility], meeting was held with Palliative, Neurology, and ICU senior it security analyst, and it was decided her wishes would be to remove from life support and keep her comfortable. Family had decided at this time to forego any further aggressive treatment including IV atb. She was extubated and transitioned to comfort care. Yesterday, family required further communication and discussion regarding the plan of care. Ultimately, she was transitioned to general inpt hospice. Upon my visit this am, she is unresponsive. Family is sleeping at the bedside. Tachypneic respirations and + upper airway secretions. She has ran fevers greater than 102 through the night. CC: Mitchell Quan MD Past Med Surg Social Fam HX - Past Medical History Medical history: arthritis, asthma, atrial fibrillation, cardiomyopathy, CHF, COPD, dementia, diabetes, GERD, hyperlipidemia, hypertension, liver disease, osteoporosis Psychiatric history: other - Social History Smoking Status: Former smoker Smokeless Tobacco Status: No Alcohol use: none Drug use: none Medications and Allergies LORazepam [Ativan] 1 mg IVP Q4H PRN vial 11/25/16 [Rx] Morphine [Morphine Sulfate] 2 mg IVP Q1H PRN syringe 11/25/16 [Rx] Ondansetron [Zofran] 4 mg IVP Q8HR PRN vial 11/25/16 [Rx] 3 Allergy/AdvReac Type Severity Reaction Status Date / Time codeine Allergy Vomiting Verified 12/27/15 10:50 iodine Allergy See Verified 11/19/16 09:05 Comments propoxyphene [From Darvon] Allergy Vomiting Verified 11/19/16 09:05 ROS unobtainable: due to mental status Palliative Care-Exam - Constitutional Vitals: Temp Pulse Resp BP Pulse Ox 102.9 F H 120 22 135/63 92 11/25/16 18:49 11/25/16 18:49 11/25/16 18:49 11/25/16 18:49 11/25/16 18:49 General appearance: Present: average body habitus, mild distress - Head Head Exam: Present: normal inspection, normocephalic - Respiratory Additional comments: Scattered course rhonchi throughout anterior chest. - Cardiovascular Cardiovascular exam: Present: +S1, +S2, tachycardia - GI/Abdominal Exam GI/Abdominal exam: Present: diminished bowel sounds, soft - Extremities Exam Extremities exam: Present: normal capillary refill, normal inspection - Neurological Exam Additional comments: Unresponsive to verbal and tactile stimuli - Skin Skin exam: Present: diaphoretic, warm Consult Discharge Plan - Plan Referrals: Ludwin Mcdonnell MD [Primary Care Provider] - Palliative Quality Palliative Quality: Screen for Code Status: Yes, Screen for Goals of Care: Yes, Screen for Pain: Yes, If Pain Regimen Started, Initiate Bowel Regimen: Yes, Screen for Nausea/Vomitting: Yes Code Status: 11/25/16 09:01 Resuscitation Status: Active [RES] Stat Comment: Resuscitation Status: DNR-Comfort Care
[2016-11-26] MEDS: *HR* Morphine 2 MG/ML SYRINGE IVP PRN ×4 (09:11→14:39)
[2016-11-26] MEDS: *HR* LORazepam 2 MG/ML VIAL IVP PRN ×3 (09:12→14:42)
[2016-11-26] MEDS: Acetaminophen 650 MG RECTAL SUPP RC PRN (10:31)
[2016-11-26] MEDS ORDERED: *HR* LORazepam 2 MG/ML VIAL IVP ONE (12:41)
--- NOTE | 2016-11-26 15:25 | Death Note ---
Discharge Sum: Summary - Date and Time Date of admission: 11/25/16 10:11 Date of : 11/26/16 Time of : 15:10 - Summary Details: The patient was brought on to the general inpatient service after being compassionately extubated in the unit day before yesterday. He should not have been suffering from sepsis, with respiratory failure secondary to the sepsis. She passed quietly and comfortably with family present. Primary diagnosis respiratory failure for days, secondary to sepsis for days. Comorbidities of arthritis, asthma, fibrillation, coronary artery disease, COPD , diabetes and dementia. Patient was a former smoker. I do not believe that this contributed directly to her demise. - Additional Data Confirmation of as documented by pronouncing clinician: no pulse, no respirations, no heart sounds Family: at bedside Attending/PCP notified?: Yes Attending physician: Mitchell Quan MD Was code activated?: No Autopsy requested?: No skeins yarn examiner notified?: No Organ bank notified?: Yes Advance directives: Yes Hospice patient?: Yes Discharge Sum: Diag - PCOD Probable Cause of : Respiratory arrest Discharge Sum: Prov - Provider Primary care physician: Ludwin Mcdonnell MD Consults: 11/25/16 09:01 Consult to Palliative Care [CONS] Routine Comment: Consulting Provider: Palliative Care Brooke Reason for Consult: coverage Call Completed: Yes
== END 2016-11-26 17:14 | disposition expired | DRG 871 ==
LOC: 2ANU 10:11
PROVIDERS: ADMIT Family Medicine Hospice and Palliative Medicine; ATTEND Family Medicine Hospice and Palliative Medicine